=== PATIENT | female | born 1995 | race African-American/Black ===

== ENCOUNTER 2016-06-28 13:04 | Emergency (ER) | payer OTHER ==
[2016-06-28 13:19] VITALS: BP 129/98
--- NOTE | 2016-06-28 13:38 | ER Document Report ---
ED Medical Screen (RME) - General Chief Complaint: Abdominal Pain Stated Complaint: ABDOMINAL PAIN, BACK PAIN Notes: 21-year-old female patient complains of 2 day history of sharp stabbing pain in both sides of her abdomen on the lateral aspect. There is no vomiting, no fever but she has felt chilled. There is no dysuria. Last menstrual period was about a month ago. She reports prior histories of pancreatitis, however visits here showed 1 lipase once being checked that was minimally above the normal level. I have greeted and performed a rapid initial assessment of this patient. A comprehensive ED assessment and evaluation of the patient, analysis of test results and completion of the medical decision making process will be conducted by additional ED providers. TRAVEL OUTSIDE OF THE [place] IN LAST 30 DAYS: No - Related Data Allergies/Adverse Reactions: No Known Allergies Allergy (Verified 11/25/13 17:46) Past Medical History - Social History Family history: CAD, DM, Hyperlipidemia, Hypertension Renal/ Medical History: Denies: Hx Peritoneal Dialysis - Immunizations Immunizations up to date: Yes Hx Diphtheria, Pertussis, Tetanus Vaccination: Yes Physical Exam - Vital signs Vitals: Temp Pulse Resp BP Pulse Ox 98.6 F 116 H 16 129/98 H 100 06/28/16 13:15 06/28/16 13:15 06/28/16 13:15 06/28/16 13:15 06/28/16 13:15 Course - Vital Signs Vital signs: Temp Pulse Resp BP Pulse Ox 98.6 F 116 H 16 129/98 H 100 06/28/16 13:15 06/28/16 13:15 06/28/16 13:15 06/28/16 13:15 06/28/16 13:15
[2016-06-28 14:03] LABS: ABSOLUTE LYMPHOCYTES (AUTO) 1.8 10^3/uL (0.5-4.7); ABSOLUTE MONOCYTES (AUTO) 0.6 10^3/uL (0.1-1.4); BASOPHILS % (AUTO) 0.8 % (0-2); EOSINOPHILS % (AUTO) 0.7 % (0-6); HEMATOCRIT 35.5 % (36.0-47.0); HEMOGLOBIN 11.5 g/dL (12.0-15.5); LYMPHOCYTES % (AUTO) 32.4 % (13-45); MEAN CORPUSCULAR HEMOGLOBIN 24.7 pg (27.0-33.4); MEAN CORPUSCULAR HGB CONC 32.4 g/dL (32.0-36.0); MEAN CORPUSCULAR VOLUME 76 fl (80-97); MONOCYTES % (AUTO) 10.7 % (3-13); RED BLOOD COUNT 4.66 10^6/uL (3.72-5.28); RED CELL DISTRIBUTION WIDTH 14.1 % (11.5-14.0); SEGMENTED NEUTROPHILS % (AUTO) 55.4 % (42-78); WHITE BLOOD COUNT 5.4 10^3/uL (4.0-10.5)
[2016-06-28 14:21] LABS: APPEARANCE,URINE CLOUDY; BILIRUBIN,URINE NEGATIVE (NEGATIVE); GLUCOSE, URINE NEGATIVE (NEGATIVE); KETONES,URINE NEGATIVE (NEGATIVE); LEUKOCYTE ESTERASE,URINE LARGE (NEGATIVE); NITRITE,URINE NEGATIVE (NEGATIVE); PROTEIN,URINE NEGATIVE (NEGATIVE)
[2016-06-28 14:30] LABS: ALANINE AMINOTRANSFERASE 21 U/L (9-52); ALBUMIN 4.5 g/dL (3.5-5.0); ALKALINE PHOSPHATASE 54 U/L (38-126); ANION GAP 12 (5-19); ASPARTATE AMINO TRANSFERASE 16 U/L (14-36); BILIRUBIN,DIRECT 0.1 mg/dL (0.0-0.4); BILIRUBIN,TOTAL 0.5 mg/dL (0.2-1.3); BLOOD UREA NITROGEN 7 mg/dL (7-20); CALCIUM 9.8 mg/dL (8.4-10.2); CARBON DIOXIDE 26 mmol/L (22-30); CHLORIDE 103 mmol/L (98-107); CREATININE RESULT 0.94 mg/dL (0.52-1.25); GLUCOSE 100 mg/dL (75-110); LIPASE 202.9 U/L (23-300); POTASSIUM 4.2 mmol/L (3.6-5.0); SODIUM 141.3 mmol/L (137-145)
[2016-06-28 15:01] LABS: ADD ON TESTING BLD IN LAB ACKNOWLEDGE
--- NOTE | 2016-06-28 16:27 | ER Document Report ---
ED GI/ - General Chief Complaint: Abdominal Pain Stated Complaint: ABDOMINAL PAIN, BACK PAIN Time seen by provider: 16:22 Mode of Arrival: Ambulatory Information source: Patient Notes: 21-year-old female presents to ED for the patient's called bad kidney infection pancreatitis and severe stomach pain and back pain to the point that she could not stand it. When I saw the patient she did not have any pain at all. She stated she had had pain for 2 days it was sharp and stabbing. Denies any nausea vomiting diarrhea or fever or chills. TRAVEL OUTSIDE OF THE [place] IN LAST 30 DAYS: No - HPI Patient complains to provider of: Abdominal pain Onset: Other - 2 days Timing/Duration: Intermittent Quality of pain: Sharp Severity at maximum: Moderate Severity in ED: None Pain Level: Denies Vaginal bleeding (Compared to normal period): None Menstrual period history: : 1 Para: 0 Associated symptoms: None Exacerbated by: Denies Relieved by: Denies Similar symptoms previously: No Recently seen / treated by doctor: No - Related Data Allergies/Adverse Reactions: No Known Allergies Allergy (Verified 06/28/16 16:38) Past Medical History - General Information source: Patient - Social History Smoking Status: Current Every Day Smoker Cigarette use (# per day): Yes - one cigarette a day Chew tobacco use (# tins/day): No Smoking Education Provided: Yes - less than 1 minute Frequency of alcohol use: None Drug Abuse: None Lives with: Grandparent(s) Family History: Reviewed & Not Pertinent Patient has suicidal ideation: No Patient has homicidal ideation: No - Past Medical History Cardiac Medical History: Reports: None Pulmonary Medical History: Reports: None EENT Medical History: Reports: None Neurological Medical History: Reports: None Endocrine Medical History: Reports: None Renal/ Medical History: Reports: None Malignancy Medical History: Reports: None GI Medical History: Reports: None Musculoskeltal Medical History: Reports None Skin Medical History: Reports None Psychiatric Medical History: Reports: None Traumatic Medical History: Reports: None Infectious Medical History: Reports: None Surgical Hx: Negative Past Surgical History: Reports: None - Immunizations Immunizations up to date: Yes Hx Diphtheria, Pertussis, Tetanus Vaccination: Yes Hx Pneumococcal Vaccination: 03/14/00 Review of Systems - Review of Systems Constitutional: No symptoms reported EENT: No symptoms reported Cardiovascular: No symptoms reported Respiratory: No symptoms reported Gastrointestinal: Abdominal pain Genitourinary: Flank pain Female Genitourinary: No symptoms reported Musculoskeletal: No symptoms reported Skin: No symptoms reported Hematologic/Lymphatic: No symptoms reported Neurological/Psychological: No symptoms reported Physical Exam - Vital signs Vitals: Temp Pulse Resp BP Pulse Ox 98.6 F 116 H 16 129/98 H 100 06/28/16 13:15 06/28/16 13:15 06/28/16 13:15 06/28/16 13:15 06/28/16 13:15 Interpretation: Normal - General General appearance: Appears well, Alert - HEENT Head: Normocephalic, Atraumatic Eyes: Normal Pupils: PERRL - Respiratory Respiratory status: No respiratory distress Chest status: Nontender Breath sounds: Normal Chest palpation: Normal - Cardiovascular Rhythm: Regular Heart sounds: Normal auscultation Murmur: No - Abdominal Inspection: Normal Distension: No distension Bowel sounds: Normal Tenderness: Nontender. No: Tender Organomegaly: No organomegaly - Back Back: Normal, Nontender - Extremities General upper extremity: Normal inspection, Nontender, Normal color, Normal ROM , Normal temperature General lower extremity: Normal inspection, Nontender, Normal color, Normal ROM , Normal temperature, Normal weight bearing. No: Abe's sign - Neurological Neuro grossly intact: Yes Cognition: Normal Orientation: AAOx4 [place] Coma Scale Eye Opening: Spontaneous [place] Coma Scale Verbal: Oriented [place] Coma Scale Motor: Obeys Commands [place] Coma Scale Total: 15 Speech: Normal Motor strength normal: LUE, RUE, LLE, RLE Sensory: Normal - Psychological Associated symptoms: Normal affect, Normal mood - Skin Skin Temperature: Warm Skin Moisture: Dry Skin Color: Normal Course - Re-evaluation Re-evalutation: 06/28/16 16:[address] Otto who is the covering physician he stated that the patient needs to get a ultrasound before she can go home. 06/28/16 17:54 Patient refused to wait for the results of the ultrasound patient signed out AGAINST MEDICAL ADVICE. She was given instructions on blood pressure stop smoking and need to follow up with [facility]. She was also given a copy of her labs to take to her first [facility] appointment. - Vital Signs Vital signs: Temp Pulse Resp BP Pulse Ox 98.6 F 116 H 16 129/98 H 100 06/28/16 13:15 06/28/16 13:15 06/28/16 13:15 06/28/16 13:15 06/28/16 13:15 - Laboratory Result Diagrams: 06/28/16 13:52 06/28/16 13:52 Laboratory results interpreted by me: 06/28/16 06/28/16 06/28/16 13:52 13:52 13:52 Hgb 11.5 L Hct 35.5 L MCV 76 L MCH 24.7 L RDW 14.1 H Serum HCG, Qual POSITIVE H Beta HCG, Quant Urine Urobilinogen 2.0 H Ur Leukocyte Esterase LARGE H 06/28/16 13:52 Hgb Hct MCV MCH RDW Serum HCG, Qual Beta HCG, Quant 236.88 H Urine Urobilinogen Ur Leukocyte Esterase Discharge - Discharge Clinical Impression: Pelvic pain affecting in first trimester, antepartum Disposition: AGAINST MEDICAL ADVICE Instructions: Pelvic Pain in ([facility]), Ob-Sports Equipment Repairer Doctors Additional Instructions: You are . care is best started as early in as possible. If you're unsure about continuing this , you should discuss this with your physician or with diesel mechanic [facility] at [facility]. You should take only medications approved by your physician. Acetaminophen can safely be taken for minor pains. As a rule, medication for chronic conditions such as asthma or seizures can safely be continued. You should discuss with the physician every medicine you take. Any regular exercise program can be continued. Talk to your physician, however, before engaging in competitive or demanding sports. Alcohol, smoking, and "street drugs" are dangerous to your baby. Cocaine is especially dangerous. Don't use any illicit drugs! Acetaminophen Acetaminophen may be taken for pain relief or fever control. It's much safer than aspirin, offering a wider range of "safe" dosages. It is safe during . Some brand names are Tylenol, Panadol, Datril, Anacin 3, Tempra, and Liquiprin. Acetaminophen can be repeated every four hours. The following are maximum recommended dosages: WEIGHT Dose Drops Elixir Chewable( 80mg) (LBS.) drprs=droppers tsp=teaspoon 6 40 mg .4 ml (1/2) 6-11 80 mg .8 ml (full) 1/2 tsp 1 tab 12-16 120 mg 1 1/2 drprs 3/4 tsp 1 1/2 tabs 17-23 160 mg 2 drprs 1 tsp 2 tabs 24-30 240 mg 3 drprs 1 1/2 tsp 3 tabs 30-35 320 mg 2 tsp 4 tabs 36-41 360 mg 2 1/4 tsp 4 1 /2 tabs 42-47 400 mg 2 1/2 tsp 5 tabs 48-53 480 mg 3 tsp 6 tabs 54-59 520 mg 3 1/4 tsp 6 1 /2 tabs 60-64 560 mg 3 1/2 tsp 7 tabs 65-70 600 mg 3 3/4 tsp 7 1 /2 tabs 71-76 640 mg 4 tsp 8 tabs 77-82 720 mg 4 1/2 tsp 9 tabs 83-88 800 mg 5 tsp 10 tabs >89 pounds or adults 650 mg to 900 mg Acetaminophen can be repeated every four hours. Maximum daily dose not to exceed 4000 mg. These maximum recommended dosages are slightly higher than the dosages written on the product container, but these dosages are very safe and well below the toxic dosage for acetaminophen. FOLLOW-UP CARE: If you have been referred to a physician for follow-up care, call the physician s office for an appointment as you were instructed or within the next two days. If you experience worsening or a significant change in your symptoms, notify the physician immediately or return to the Emergency Department at any time for re-evaluation. Forms: Smoking Cessation Education, Elevated Blood Pressure
== END 2016-06-28 17:55 | disposition left against medical advice (07) ==
LOC: ER 13:04
DX: O26.891 Other specified pregnancy related conditions, first trimester (principal); R10.2 Pelvic and perineal pain; R10.9 Unspecified abdominal pain; M54.9 Dorsalgia, unspecified; O99.331 Smoking (tobacco) complicating pregnancy, first trimester; F17.210 Nicotine dependence, cigarettes, uncomplicated; Z3A.00 Weeks of gestation of pregnancy not specified
CPT/HCPCS: 36415; 76817; 80053; 81001; 83690; 84702; 84703; 85025; 99284

== ENCOUNTER 2016-08-17 21:44 | Emergency (ER) | payer OTHER | END 2016-08-17 22:51 | disposition left against medical advice (07) | LOC: ER 21:44 | DX: Z53.9 Procedure and treatment not carried out, unspecified reason (principal); R10.9 Unspecified abdominal pain; O46.91 Antepartum hemorrhage, unspecified, first trimester ==

== ENCOUNTER 2016-11-06 15:43 | Outpatient (CLI) | payer OTHER, MEDICAID ==
[2016-11-06 17:48] LABS: APPEARANCE,URINE CLEAR; BILIRUBIN,URINE NEGATIVE (NEGATIVE); GLUCOSE, URINE NEGATIVE (NEGATIVE); KETONES,URINE NEGATIVE (NEGATIVE); LEUKOCYTE ESTERASE,URINE TRACE (NEGATIVE); NITRITE,URINE NEGATIVE (NEGATIVE); PROTEIN,URINE NEGATIVE (NEGATIVE); URINE SPECIFIC GRAVITY 1.006; UROBILINOGEN,URINE NEGATIVE mg/dL (<2.0)
[2016-11-06 17:59] LABS: URINE BARBITURATES SCREEN NEGATIVE; URINE METHADONE SCREEN NEGATIVE; URINE OPIATES LOW NEGATIVE; URINE PHENCYCLIDINE SCREEN NEGATIVE
[2016-11-06] MEDS ORDERED: ONDANSETRON 4 MG TAB.RAPDIS ONE (18:39)
[2016-11-06] MEDS ORDERED: METRONIDAZOLE 500 MG TABLET ONE (18:55)
[2016-11-06 19:10] LABS: CHLAM PCR NOT DETECTED (NOT DETECT)
== END 2016-11-06 19:05 | disposition home or self-care (01) ==
LOC: LC 15:43
PROVIDERS: ATTEND Specialist
PROC: 4A1HXCZ Monitoring of Products of Conception, Cardiac Rate, External Approach (ICD-10-PCS; principal; 2016-11-06)
DX: O98.312 Other infections with a predominantly sexual mode of transmission complicating pregnancy, second trimester (principal); Z3A.23 23 weeks gestation of pregnancy
CPT/HCPCS: 87210; 81001; 80307; 87491; 87591; 59899; S0119

== ENCOUNTER 2016-12-20 12:04 | Outpatient (CLI) | payer OTHER, MEDICAID ==
[2016-12-20 13:03] LABS: APPEARANCE,URINE CLEAR; BILIRUBIN,URINE NEGATIVE (NEGATIVE); GLUCOSE, URINE NEGATIVE (NEGATIVE); KETONES,URINE NEGATIVE (NEGATIVE); LEUKOCYTE ESTERASE,URINE TRACE (NEGATIVE); NITRITE,URINE NEGATIVE (NEGATIVE); PROTEIN,URINE NEGATIVE (NEGATIVE); URINE SPECIFIC GRAVITY 1.014
[2016-12-20 13:08] LABS: AMNISURE (ROM) NEGATIVE (NEGATIVE)
[2016-12-20 13:24] LABS: URINE BARBITURATES SCREEN NEGATIVE; URINE METHADONE SCREEN NEGATIVE; URINE OPIATES LOW NEGATIVE; URINE PHENCYCLIDINE SCREEN NEGATIVE
== END 2016-12-20 13:26 | disposition home or self-care (01) ==
LOC: LC 12:04
PROVIDERS: ATTEND Obstetrics & Gynecology
PROC: 4A1HXCZ Monitoring of Products of Conception, Cardiac Rate, External Approach (ICD-10-PCS; principal; 2016-12-20)
DX: Z34.93 Encounter for supervision of normal pregnancy, unspecified, third trimester (principal)
CPT/HCPCS: 84112; 81001; 80307; 80353; 59899; G0480 ×3

== ENCOUNTER 2017-02-10 01:44 | Inpatient (IN) | payer OTHER, MEDICAID ==
[2017-02-10] MEDS ORDERED: RINGERS SOLUTION,LACTATED 1,000 ML IV PRN (02:37)
[2017-02-10] MEDS ORDERED: RINGERS SOLUTION,LACTATED 1,000 ML IV ONE (02:37)
[2017-02-10 02:49] LABS: HEMATOCRIT 30.6 % (36.0-47.0); HEMOGLOBIN 9.8 g/dL (12.0-15.5); HGB HCT DIFFERENCE -1.2; MEAN CORPUSCULAR HGB CONC 32.2 g/dL (32.0-36.0); MEAN CORPUSCULAR VOLUME 78 fl (80-97); RED BLOOD COUNT 3.94 10^6/uL (3.72-5.28); RED CELL DISTRIBUTION WIDTH 14.3 % (11.5-14.0)
[2017-02-10] MEDS ORDERED: PENICILLIN G-K 5 MILLION UNIT VIAL ONE (03:12)
[2017-02-10] MEDS ORDERED: MISOPROSTOL 0.2 MG TABLET ONE (03:12)
[2017-02-10] MEDS ORDERED: OXYTOCIN/NORMAL SALINE 20 UNIT/1,000 ML RTUINJ ONE (03:13)
[2017-02-10] MEDS ORDERED: LIDOCAINE 1% INJ-PF (10 MG/ML) 30 ML SDV ONE (03:13)
[2017-02-10 03:15] LABS: BASOPHILS % (MANUAL) 0 % (0-2); EOSINOPHILS % (MANUAL) 0 % (0-6); LYMPHOCYTES % (MANUAL) 25 % (13-45); TOTAL CELLS COUNTED 100
[2017-02-10 03:16] LABS: POLYCHROMASIA SLIGHT; TOXIC GRANULATION SLIGHT; TOXIC VACUOLATION PRESENT
[2017-02-10 03:17] LABS: ANISOCYTOSIS SLIGHT; BURR CELLS 1+; OVALOCYTES SLIGHT; POIKILOCYTOSIS SLIGHT
[2017-02-10 03:18] LABS: MICROCYTOSIS SLIGHT; TEAR DROP CELLS SLIGHT
[2017-02-10] MEDS ORDERED: BUPIVACAINE HCL 0.25 % INJ/PF (2.5 MG/1 ML) 30 ML VIAL ONE (04:01)
[2017-02-10] MEDS ORDERED: EPHEDRINE SULFATE INJ 50 MG/1 ML AMPULE ONE (04:01)
[2017-02-10] MEDS ORDERED: FENTANYL/BUPIVACAINE/NS/PF 200 MCG/100 ML RTUINJ EPI ONE (04:01)
[2017-02-10] MEDS ORDERED: EPHEDRINE SULFATE INJ 50 MG/1 ML AMPULE IV ONE (04:04)
[2017-02-10] MEDS ORDERED: BUPIVACAINE HCL 0.25 % INJ/PF (2.5 MG/1 ML) 30 ML VIAL INFIL ONE (04:04)
[2017-02-10] MEDS ORDERED: EPHEDRINE SULFATE INJ 50 MG/1 ML AMPULE IV PRN (04:04)
[2017-02-10] MEDS ORDERED: DIPHENHYDRAMINE HCL 50 MG/ML VIAL IV PRN (04:04)
[2017-02-10] MEDS ORDERED: FENTANYL/BUPIVACAINE/NS/PF 200 MCG/100 ML RTUINJ EPI PRN (04:04)
[2017-02-10] MEDS ORDERED: BENZOIN/ALOE VERA/STORAX/TOLU TINCTURE 60 ML TP PRN (04:04)
[2017-02-10 04:23] LABS: APPEARANCE,URINE SLIGHTLY-CLOUDY; BILIRUBIN,URINE NEGATIVE (NEGATIVE); GLUCOSE, URINE NEGATIVE (NEGATIVE); KETONES,URINE 20 mg/dL (NEGATIVE); LEUKOCYTE ESTERASE,URINE MODERATE (NEGATIVE); NITRITE,URINE NEGATIVE (NEGATIVE); PROTEIN,URINE 30 mg/dL (NEGATIVE); URINE SPECIFIC GRAVITY 1.025
[2017-02-10 04:41] LABS: URINE BARBITURATES SCREEN NEGATIVE; URINE METHADONE SCREEN NEGATIVE; URINE OPIATES LOW NEGATIVE; URINE PHENCYCLIDINE SCREEN NEGATIVE
[2017-02-10] MEDS ORDERED: MEASLES,MUMPS&RUBELLA VACC/PF 0.5 ML VIAL SUBCUT PRN ×2 (07:54→11:30)
[2017-02-10] MEDS ORDERED: OXYTOCIN/NORMAL SALINE 1,000 ML IV PRN (07:54)
[2017-02-10] MEDS ORDERED: BENZOCAINE/MENTHOL AEROSOL SPRAY 56 ML TOP PRN (07:54)
[2017-02-10] MEDS ORDERED: ZOLPIDEM TARTRATE 5 MG TABLET PO PRN (07:54)
[2017-02-10] MEDS ORDERED: DIBUCAINE 1% OINTMENT 28 GM TP PRN (07:54)
[2017-02-10] MEDS ORDERED: DIPH/PERTUSS(ACELL)/TETANUS VAC/PF 0.5 ML SYR (>=10YO) IM PRN ×2 (07:54→11:30)
[2017-02-10] MEDS ORDERED: ACETAMINOPHEN WITH CODEINE #3 TABLET PO PRN (07:54)
--- NOTE | 2017-02-10 08:20 | Admission Physical ---
Datetime Report Generated by CPN: 02/10/2017 08:19 CURRENT ADMISSION Chief Complaint: Uterine Contractions Indication for Induction: Not Applicable Indication for Induction: Term, Intrauterine ; Active Labor; Intact Membranes Admit Plan: Admit to Unit; Initiate Labor Protocol ALLERGIES Medication Allergies: No Medication Allergies: No Known Allergies (02/10/2017) Medication Allergies: No Known Allergies (12/20/2016) Medication Allergies: No Known Allergies (06/28/2016) Latex: No Latex Allergies Food Allergies: none Environmental Allergies: none OBSTETRICAL HISTORY EDC: 03/03/2017 00:00 : 1 Para: 0 Term: 0 : 0 SAB: 0 IAB: 0 Ectopic: 0 Livin Cesareans: 0 VBACs: 0 Multiple Births: 0 Gestational Diabetes: No Rh Sensitization: No Incompetent Cervix: No ALBINO: No Infertility: No ART Treatment: No Uterine Anomaly: No IUGR: No Hx Previous C/S: No Macrosomia: No Hx Loss/Stillborn: No PIH: No Hx : No Placenta Previa/Abruption: No Depression/PP Depression: No PTL/PROM: No Post Hemorrhage: No Current Procedures: Ultrasound Obstetrical History Comments: G1: Current SEE RECORDS Alcohol: No Marijuana : Yes Cocaine: No Other Illicit Drugs: No Cigarettes: Current Everyday Smoker. [id number] MEDICAL HISTORY Diabetes: No Blood Transfusion: No Pulmonary Disease (Asthma, TB): No Breast Disease: No Hypertension: No Ell Teacher Surgery: No Heart Disease: No Hosp/Surgery: No Anesthetic Complications: No Kidney Disease: Yes Abnormal Pap Smear: No Other Medical Diseases: No Hepatitis/Liver Disease: No Significant Family History: No Varicosities/Phlebitis: No Trauma/Violence : No Thyroid Dysfunction: No Medical History Comments: Kidney infection- summer 2015 pacreatitis- october 2015 INFECTIOUS HISTORY Gonorrhea: Yes Genital Herpes: Yes Chlamydia: Yes Tuberculosis: No Syphilis: No Hepatitis: No HIV/AIDS Exposure: No Rash or Viral Illness: No HPV: No Infectious History Comments: Gonorrhea- September PHYSICAL EXAM General: Normal HEENT: Normal Neurologic: Normal Thyroid: Normal Heart: Normal Lungs: Normal Breast: Deferred Back: Normal Abdomen: Normal Genitourinary Exam: Normal Extremities: Normal DTRs: Normal Pelvic Type: Adequate VAGINAL EXAM Dilatation: 5 MEMBRANES Membranes: Intact FETUS A EGA: 37.0 Decelerations: None PLANS FOR LABOR AND DELIVERY Labor and Delivery: None Pain Management: Epidural Feeding Preference: Formula Benefit of Breast Feed Discussed: Yes Circumcision: N/A INFORMED CONSENT Signature: with User ID: [email or web address]
[2017-02-10] MEDS: PRENATAL VITAMIN W DHA CAPSULE PO SCH (09:54)
[2017-02-10] MEDS: SENNOSIDES/DOCUSATE 8.6-50 MG 1 EACH TABLET PO SCH (09:54)
[2017-02-10] MEDS: DOCUSATE SODIUM 100 MG CAPSULE PO SCH ×2 (09:54→17:34)
[2017-02-10] MEDS: FERROUS SULFATE 325 MG TABLET PO SCH ×2 (09:54→17:34)
[2017-02-10] MEDS: ACETAMINOPHEN WITH CODEINE #3 TABLET PO PRN ×2 (10:21→21:51)
[2017-02-10] MEDS ORDERED: INFLUENZA ADLT QUAD (36MOS+) 2017-18 VAC 0.5 ML SYR IM PRN (11:03)
[2017-02-10] MEDS: IBUPROFEN 800 MG TABLET PO SCH ×2 (13:30→21:51)
[2017-02-11] MEDS: IBUPROFEN 800 MG TABLET PO SCH ×3 (05:37→21:03)
[2017-02-11 07:18] LABS: HEMATOCRIT 28.4 % (36.0-47.0); HEMOGLOBIN 9.1 g/dL (12.0-15.5); HGB HCT DIFFERENCE -1.1; MEAN CORPUSCULAR HEMOGLOBIN 25.1 pg (27.0-33.4); MEAN CORPUSCULAR HGB CONC 32.2 g/dL (32.0-36.0); MEAN CORPUSCULAR VOLUME 78 fl (80-97); RED BLOOD COUNT 3.63 10^6/uL (3.72-5.28); RED CELL DISTRIBUTION WIDTH 14.2 % (11.5-14.0); WHITE BLOOD COUNT 12.3 10^3/uL (4.0-10.5)
[2017-02-11] MEDS: SENNOSIDES/DOCUSATE 8.6-50 MG 1 EACH TABLET PO SCH (10:34)
[2017-02-11] MEDS: PRENATAL VITAMIN W DHA CAPSULE PO SCH (10:34)
[2017-02-11] MEDS: DOCUSATE SODIUM 100 MG CAPSULE PO SCH ×2 (10:34→18:11)
[2017-02-11] MEDS: FERROUS SULFATE 325 MG TABLET PO SCH ×2 (10:34→18:11)
--- NOTE | 2017-02-11 11:37 | PDOC PROGRESS REPORT ---
Subjective-OB Subjective: Post Delivery Day: 21 year old. pt doing well, tolerating diet, voiding, bleeding diminishing, pain controlled. denies needs. Physical Exam (OB) Vital Signs: Temp Pulse Resp BP Pulse Ox 97.6 F 81 16 102/77 99 02/11/17 07:53 02/11/17 07:53 02/11/17 07:53 02/11/17 07:53 02/11/17 07:53 Intake & Output 02/10/17 02/11/17 02/12/17 06:59 06:59 06:59 Intake Total 900 Balance 900 Weight 68 kg - Abdomen Description: Soft, Round Hernia Present: No Fundal Description: Firm, Midline Fundal Height: u/u - u/2 - Abdominal Distension: No distension Tenderness: Nontender - Extremities Lower extremities: Abe's sign - neg Ankle: Nontender Objective-Diagnostic Laboratory: 02/11/17 07:00 02/11/17 07:00 WBC 12.3 H RBC 3.63 L Hgb 9.1 L Hct 28.4 L MCV 78 L MCH 25.1 L MCHC 32.2 RDW 14.2 H Plt Count 188
[2017-02-12] MEDS: IBUPROFEN 800 MG TABLET PO SCH (06:09)
[2017-02-12 09:12] VITALS: BP 120/79
--- NOTE | 2017-02-12 09:47 | PDOC PROGRESS REPORT ---
Subjective-OB Subjective: Post Delivery Day: 21 year old. Denies any needs at this time Physical Exam (OB) Vital Signs: Temp Pulse Resp BP Pulse Ox 97.4 F 95 15 120/79 99 02/12/17 08:38 02/12/17 08:38 02/12/17 08:38 02/12/17 08:38 02/12/17 08:38 Intake & Output 02/11/17 02/12/17 02/13/17 06:59 06:59 06:59 Intake Total 900 240 Balance 900 240 - Abdomen Description: Soft, Round Hernia Present: No Fundal Description: Firm, Midline Fundal Height: 3/u - 4/u - Abdominal Tenderness: Nontender - Extremities Lower extremities: Abe's sign - neg Calf: Nontender Objective-Diagnostic Laboratory: 02/11/17 07:00
[2017-02-12] MEDS: DOCUSATE SODIUM 100 MG CAPSULE PO SCH (10:59)
[2017-02-12] MEDS: PRENATAL VITAMIN W DHA CAPSULE PO SCH (10:59)
[2017-02-12] MEDS: FERROUS SULFATE 325 MG TABLET PO SCH (11:00)
[2017-02-12] MEDS: SENNOSIDES/DOCUSATE 8.6-50 MG 1 EACH TABLET PO SCH (11:00)
--- NOTE | 2017-02-23 14:14 | Delivery Summary ---
Del Sum A-C Datetime Report Generated by CPN: 02/23/2017 14:14 DELIVERY PERSONNEL DELIVERY PERSONNEL: [id number] Delivery Doctor:: John Salcedo MD Labor and Delivery Nurse:: Maxine Meredith RNrotational moulding operator Nurse:: Cammie Balderas RN Nursery Nurse:: Sharita Chong RN Cascade Operator/WELDER APPRENTICE COMBINATION: LUDIN JoyceA MATERNAL INFORMATION Delivery Anesthesia: Epidural Medications After Delivery: Pitocin Bolus-Please Comment; Pitocin Drip 20 Units/1000ml NSS Estimated Blood Loss (ml): 200 Maternal Complications: Precipitous Labor (<3hrs); Other Other Maternal Complications: UDS showed positive for cocaine on preliminary result, confirmation ordered. Provider Comments: small baby pt pos for cocaine LABOR SUMMARY EDC: 03/03/2017 00:00 No. Babies in Womb: 0 Attempted: No Labor Anesthesia: Epidural LABOR INFORMATION Reason for Induction: Not Applicable Onset of Labor: 02/10/2017 02:55 Complete Dilatation: 02/10/2017 04:35 Oxytocin: N/A Group B Beta Strep: unknown Antibiotics # of Doses: 1 Antibiotics Time of Last Dose: 0325 Name of Antibiotic Given: PCN Steroids Given: None Reason Steroids Not Administered: Not Applicable MEMBRANES Membranes Rupture Method: Spontaneous Membranes Rupture Method: Spontaneous Rupture of Membranes: 02/10/2017 03:09 Length of Rupture (hr): 1.93 Amniotic Fluid Color: Clear Amniotic Fluid Color: Clear Amniotic Fluid Amount: Moderate Amniotic Fluid Amount: Moderate Amniotic Fluid Odor: Normal STAGES OF LABOR Stage 1 hr: 1 Stage 1 min: 40 Stage 2 hr: 0 Stage 2 min: 30 Stage 3 hr: 0 Stage 3 min: 3 Total Time in Labor hr: 2 Total Time in Labor min: 13 VAGINAL DELIVERY Episiotomy: None Laceration #1: None Laceration Extension #1: N/A Laceration Repair: Not Applicable Sponge Count Correct: N/A Sharps Count Correct: N/A CSECTION DELIVERY Primary Indication: N/A Secondary Indication: N/A CSection Incidence: N/A Labor: N/A Elective: N/A CSection Incision: N/A BABY A INFORMATION Delivery Date/Time: 02/10/2017 05:05 Method of Delivery: Vaginal Method of Delivery: Vaginal Born in Route : No : N/A Forceps: N/A Vacuum Extraction: N/A Shoulder Dystocia : No PRESENTATION/POSITION BABY A Presentation: Cephalic Presentation: Cephalic Presentation: Cephalic Cephalic Presentation: Vertex Vertex Position: Occipital Anterior Breech Presentation: N/A PLACENTA INFORMATION BABY A Placenta Delivery Time : 02/10/2017 05:08 Placenta Method of Delivery: Spontaneous Placenta Method of Delivery: Spontaneous Placenta Status: Delivered SCORES BABY A Heart Rate 1 min: >100 bpm Resp Effort 1 min: Good Cry Reflex Irritability 1 min: Cough or Sneeze or Pulls Away Muscle Tone 1 min: Active Motion Color 1 min: Blue/Pale Resuscitation Effort 1 min: Tactile Stimulation SCORE 1 MIN: 8 Heart Rate 5 min: >100 bpm Resp Effort 5 min: Good Cry Reflex Irritability 5 min: Cough or Sneeze or Pulls Away Muscle Tone 5 min: Active Motion Color 5 min: Body [place], Extremities Blue Resuscitation Effort 5 min: Tactile Stimulation SCORE 5 MIN: 9 INFORMATION BABY A Gestational Age at Delivery: 37.0 Gestational Status: Early Term- 37- 38.6 Weeks Infant Outcome : Liveborn Condition : Stable Infant Sex: Female IDENTIFICATION BABY A Verification Date/Time: 02/10/2017 05:17 ID Band Number: [id number] Mother's Name Verified: Yes Infant RN Verifying : SJasper Mendozatibjaradir, RN _ MJasper Archer, RN WEIGHT/LENGTH BABY A Birthweight (gm): 2410 Infant Weight (lb): 5 Infant Weight (oz): 5 Infant Length (in): 18.00 Infant Length (cm): 45.72 CORD INFORMATION BABY A No. Cord Vessels: 3 Nuchal Cord : N/A Cord Blood Taken: Yes-For Storage (Mom's Blood type +) Suction: Mouth; Nose ASSESSMENT BABY A Infant Complications: None Physical Findings at Delivery: Within Normal Limits Respirations: Appears Normal Skin to Skin: No Skin to Skin Time (min): 0 Api Product Manager/ALS Called : No Care By: A Arlette, RN Transferred To: Remains with Mother BABY B INFORMATION : N/A SIGNATURES Signature: with User ID: [email or web address]
== END 2017-02-12 12:20 | disposition home or self-care (01) | DRG 775 ==
LOC: LC 01:44 → LR 03:05 → 2S 08:18
PROVIDERS: ADMIT Obstetrics & Gynecology Gynecology; ATTEND Obstetrics & Gynecology Gynecology
PROC: 10E0XZZ Delivery of Products of Conception, External Approach (ICD-10-PCS; principal; 2017-02-10)
PROC: 4A0HXCZ Measurement of Products of Conception, Cardiac Rate, External Approach (ICD-10-PCS; 2017-02-10)
PROC: 3E0234Z Introduction of Serum, Toxoid and Vaccine into Muscle, Percutaneous Approach (ICD-10-PCS; 2017-02-12)
DX: O99.324 Drug use complicating childbirth (principal); O99.334 Smoking (tobacco) complicating childbirth; O62.3 Precipitate labor; F14.90 Cocaine use, unspecified, uncomplicated; F17.210 Nicotine dependence, cigarettes, uncomplicated; F12.90 Cannabis use, unspecified, uncomplicated; Z3A.37 37 weeks gestation of pregnancy; Z37.0 Single live birth; Z23 Encounter for immunization
CPT/HCPCS: 36415; 80307; 80353; 81005; 85025; 85027; 86592; 86850; 86900; 86901; 90686; G0480; J2540; J2590; J3490

== ENCOUNTER → 2017-02-24 | Outpatient (CLI) | payer OTHER, MEDICAID ==
[2017-02-25 14:41] LABS: HGB SOLUBILITY RESULT Negative (Negative)
[2017-02-25 15:22] LABS: HGB A 96.1 % (94.0-98.0); HGB A2 3.9 % (0.7-3.1)
== END ==
LOC: LAB 11:28
PROVIDERS: ATTEND Pediatrics
DX: Z13.0 Encounter for screening for diseases of the blood and blood-forming organs and certain disorders involving the immune mechanism (principal)
CPT/HCPCS: 36415; 83020

== ENCOUNTER 2017-04-17 11:26 | Emergency (ER) | payer MEDICAID, OTHER ==
[2017-04-17 11:30] VITALS: BP 101/72
[2017-04-17] MEDS ORDERED: LIDOCAINE 2% VISCOUS SOLN 20 ML UDCUP PO ONE (11:44)
--- NOTE | 2017-04-17 11:44 | ER Document Report ---
HPI - HPI Pain Level: 5 Notes: Patient is a 21-year-old female with no significant past medical history presents ED complaining of 2 things. The first is right-sided dental pain 1 week without obvious abscess or discharge. Patient states that she has had pain to the right side where she had teeth pulled previously. Patient also states that she has had a dry nonproductive cough 3 days without fever, nasal congestion as discharge. Patient states that she is eating and drinking without difficulties. She is urinating normally having normal bowel movements. Patient states that she was evaluated at the urgent care yesterday, had a negative workup, and was given Motrin for her pain, but she believes that she needs something more for her dental pain. She denies any drug allergies, smoking, IV drug use. Patient does have a dentist but has not seen them in 2 months since she has had teeth pulled. Denies any headache, fever, head injury , neck pain, changes in vision/speech/mentation/hearing, URI, sore throat, chest pain, palpitations, syncope, shortness of breath, wheeze, dyspnea, abdominal pain, nausea/vomiting/diarrhea, urinary retention, dysuria, hematuria , or rash. - ROS Systems Reviewed and Negative: Yes All other systems reviewed and negative - REPRODUCTIVE Reproductive: DENIES: : Past Medical History - Social History Smoking Status: Never Smoker Family History: Reviewed & Not Pertinent Renal/ Medical History: Denies: Hx Peritoneal Dialysis - Immunizations Immunizations up to date: Yes Hx Diphtheria, Pertussis, Tetanus Vaccination: Yes Hx Pneumococcal Vaccination: 03/14/00 Vertical Provider Document - CONSTITUTIONAL Agree With Documented VS: Yes Notes: PHYSICAL EXAMINATION: GENERAL: Well-appearing, well-nourished and in no acute distress. HEAD: Atraumatic, normocephalic. EYES: Pupils equal round and reactive to light, extraocular movements intact, sclera anicteric, conjunctiva are normal. ENT: EAC clear b/l. TM's intact b/l without erythema, fluid, or perforation. Nares patent and without discharge. oropharynx clear without exudates. No tonsilar hypertrophy or erythema. Moist mucous membranes. No sinus tenderness. Uvula midline. No palatine shift. No tongue protrusion. No respiratory compromise. Mouth: Poor dentition. + mild decay and mild gingivitis. No obvious abscess or discharge noted. No facial swelling. + tenderness to tooth #2. NECK: Normal range of motion, supple without lymphadenopathy. No rigidity/ meningismus. LUNGS: Breath sounds clear to auscultation bilaterally and equal. No wheezes rales or rhonchi. HEART: Regular rate and rhythm without murmurs, rubs, gallops. NEUROLOGICAL: Cranial nerves grossly intact. Normal speech, normal gait. Normal sensory, motor exams PSYCH: Normal mood, normal affect. SKIN: Warm, Dry, normal turgor, no rashes or lesions noted. - INFECTION CONTROL TRAVEL OUTSIDE OF THE [place] IN LAST 30 DAYS: No - RESPIRATORY O2 Sat by Pulse Oximetry: 99 Course - Re-evaluation Re-evalutation: 04/17/17 11:57 Patient is an afebrile, well-hydrated, 21-year-old female who presents ED with dental pain, suspect nerve root etiology versus infection, as well as a cough that I suspect is also viral. Vitals are stable. PE is otherwise unremarkable. No labs or imaging warranted at this time based on H&P. Patient' s lungs are clear to auscultation and she is perfusing oxygen well. Advised patient that I will not be giving any narcotics for her pain, but I will send her home with viscous lidocaine. I will also send her home with a prescription for penicillin as precautionary for her dental pain. Low suspicion for any meningitis, sepsis, peritonsillar/pharyngeal abscess, respiratory compromise, Jan's, temporal arteritis, or other emergent systemic condition at this time. Patient is aware this condition can change from initial presentation and she needs to monitor symptoms closely. Conservative measures otherwise for symptoms. Call to schedule an appointment with a dentist for further evaluation and management. Recheck with your PCM this week as well. Return to the ED with any worsening/concerning symptoms otherwise as reviewed in discharge. Patient is in agreement. - Vital Signs Vital signs: Temp Pulse Resp BP Pulse Ox 97.5 F 103 H 16 101/72 99 04/17/17 11:30 04/17/17 11:30 04/17/17 11:30 04/17/17 11:30 04/17/17 11:30 Discharge - Discharge Clinical Impression: Toothache, Acute URI Condition: Stable Disposition: HOME, SELF-CARE Instructions: [facility], Dentist, Penicillin V K ([facility]), Toothache ([facility]), Upper Respiratory Illness ([facility]) Additional Instructions: [place] and floss twice daily Maintain fluid intake Take antibiotics as directed Mouthwash, salt water gargles, peroxide rinse as needed Tylenol/ibuprofen as needed Recheck with PCM this week Wash hands regularly Wear a mask if coughing OTC cold medication as needed Call today/tomorrow and schedule an appointment with your dentist for further evaluation Return to the ED with any worsening symptoms and/or development of fever, headache, facial swelling, swelling of lips/tongue/throat, trouble swallowing, drooling, hoarseness, neck pain/stiffness, chest pain, palpitations, syncope, shortness of breath, trouble breathing, abdominal pain, n/v/d, numbness/tingling , or other worsening symptoms that are concerning to you. Prescriptions: Penicillin V Potassium [Penicillin Vk 250 mg Tablet] 500 mg PO BID #40 tablet Referrals: [facility] [Provider Group] - Follow up as needed [facility] [Provider Group] - Follow up as needed
== END 2017-04-17 11:58 | disposition home or self-care (01) ==
LOC: ER 11:26
DX: J06.9 Acute upper respiratory infection, unspecified (principal); K08.89 Other specified disorders of teeth and supporting structures; R05 Cough
CPT/HCPCS: 99282; J3490

== ENCOUNTER 2018-02-09 05:38 | Emergency (ER) | payer SELFPAY ==
--- NOTE | 2018-02-09 06:52 | ER Document Report ---
ED General - General Chief Complaint: Chest Pain Stated Complaint: CHEST PAIN Time Seen by Provider: 02/09/18 06:21 Notes: Patient is a 22-year-old female that presents to the emergency department for chief complaint of chest pain. Patient states she has been having intermittent sharp chest pains in the left side of her chest, and then towards the middle of her chest on and off over the past 48 hours. The pain was worse this morning so she decided come to the emergency department. It would last for 10-15 minutes at a time, she does have some chest discomfort at this time as well. Again described as a sharp sensation she currently rates it as a 3 out of 10. Denies any associated shortness of breath, difficulty breathing, fevers, chills , cough, nausea or vomiting. Past Medical History: Thalassemia Past Surgical History: Denies surgical history Social History: Admits to smoking cigarettes, denies alcohol or drug use. Family History: Reviewed and noncontributory for presenting illness Allergies: Reviewed, see documented allergy list. REVIEW OF SYSTEMS: Other than noted above, the 12 point review of systems was reviewed with the patient and were negative, all pertinent findings are included in the HPI. PHYSICAL EXAMINATION: Vital signs reviewed, nursing noted reviewed. GENERAL: Well-appearing, well-nourished and in no acute distress. HEAD: Atraumatic, normocephalic. EYES: Eyes appear normal, extraocular movements intact, sclera anicteric, conjunctiva are normal. ENT: nares patent, oropharynx clear without exudates. Moist mucous membranes. NECK: Normal range of motion, supple without lymphadenopathy LUNGS: Breath sounds clear to auscultation bilaterally and equal. No wheezes rales or rhonchi. HEART: Regular rate tachycardic, regular rhythm ABDOMEN: Soft, nontender, normoactive bowel sounds. No rebound, guarding, or rigidity. No masses appreciated. EXTREMITIES: Nontender, good range of motion, no pitting or edema. NEUROLOGICAL: No focal neurological deficits. Moves all extremities spontaneously Motor and sensory grossly intact on exam. PSYCH: Flat affect, but answers questions appropriately SKIN: Warm, Dry, normal turgor, no rashes or lesions noted on exposed skin TRAVEL OUTSIDE OF THE [place] IN LAST 30 DAYS: No - Related Data Allergies/Adverse Reactions: No Known Allergies Allergy (Verified 02/10/17 02:40) Past Medical History - Social History Smoking Status: Current Every Day Smoker Family History: Reviewed & Not Pertinent Renal/ Medical History: Denies: Hx Peritoneal Dialysis - Immunizations Immunizations up to date: Yes Hx Diphtheria, Pertussis, Tetanus Vaccination: Yes Hx Pneumococcal Vaccination: 03/14/00 Physical Exam - Vital signs Vitals: Temp Pulse Resp BP Pulse Ox 98.3 F 113 H 16 126/87 H 99 02/09/18 05:42 02/09/18 05:42 02/09/18 05:42 02/09/18 05:42 02/09/18 05:42 Course - Re-evaluation Re-evalutation: Patient seen and examined vital signs reviewed. Laboratory data and imaging were ordered as appropriate for the patient's presenting symptoms and complaint, with consideration of any critical or life threatening conditions that may be associated with their obtained history and exam as noted above. Patient was treated with IV fluids, and Pepcid Results were reviewed when available and demonstrated negative troponin, negative chest x-ray, negative d-dimer, blood work was otherwise unremarkable, mild anemia, patient has history of thalassemia, this is actually improved from her baseline. The patient was re-evaluated and was improved, no further chest pain Evaluation was most consistent with chest pain, nonspecified, possible GI related, will prescribe the patient Pepcid 20 mg twice daily, advised to follow- up with her primary care physician. Results were discussed with the patient at this point, after careful consideration I feel that that patient can be discharged from the emergency department, the patient was educated treatments and reasons to return to the emergency department based on their presumed diagnosis as noted above, they were advised to followup with a primary care physician in 2-3 days. Patient was agreeable to plan of care. *Note is created using voice recognition software and may contain spelling, syntax or grammatical errors. Patient seen and examined vital signs reviewed. Laboratory 02/09/18 02/09/18 02/09/18 07:10 07:10 07:10 WBC 5.5 RBC 4.47 Hgb 11.1 L Hct 34.8 L MCV 78 L MCH 24.8 L MCHC 31.9 L RDW 14.1 H Plt Count 224 Seg Neutrophils % 54.0 Lymphocytes % 32.2 Monocytes % 12.4 Eosinophils % 0.7 Basophils % 0.7 Absolute Neutrophils 3.0 Absolute Lymphocytes 1.8 Absolute Monocytes 0.7 Absolute Eosinophils 0.0 Absolute Basophils 0.0 D-Dimer Sodium 143.5 Potassium 4.1 Chloride 103 Carbon Dioxide 28 Anion Gap 13 BUN 11 Creatinine 1.00 Est GFR ( Amer) > 60 Est GFR (Non-Af Amer) > 60 Glucose 95 Calcium 9.8 Total Bilirubin 0.6 Direct Bilirubin 0.2 Neonat Total Bilirubin Not Reportable Neonat Direct Bilirubin Not Reportable Neonat Indirect Bili Not Reportable AST 19 ALT 13 Alkaline Phosphatase 52 Troponin I < 0.012 Total Protein 8.0 Albumin 4.6 Serum HCG, Qual 02/09/18 02/09/18 07:10 07:10 WBC RBC Hgb Hct MCV MCH MCHC RDW Plt Count Seg Neutrophils % Lymphocytes % Monocytes % Eosinophils % Basophils % Absolute Neutrophils Absolute Lymphocytes Absolute Monocytes Absolute Eosinophils Absolute Basophils D-Dimer < 0.27 Sodium Potassium Chloride Carbon Dioxide Anion Gap BUN Creatinine Est GFR ( Amer) Est GFR (Non-Af Amer) Glucose Calcium Total Bilirubin Direct Bilirubin Neonat Total Bilirubin Neonat Direct Bilirubin Neonat Indirect Bili AST ALT Alkaline Phosphatase Troponin I Total Protein Albumin Serum HCG, Qual NEGATIVE Chest X-Ray 02/09/18 06:51 IMPRESSION: NO ACUTE RADIOGRAPHIC FINDING IN THE CHEST. - Vital Signs Vital signs: Temp Pulse Resp BP Pulse Ox 98.2 F 113 H 18 119/88 H 100 02/09/18 08:33 02/09/18 05:42 02/09/18 08:33 02/09/18 08:33 02/09/18 07:00 - Laboratory Result Diagrams: 02/09/18 07:10 02/09/18 07:10 Laboratory results interpreted by me: 02/09/18 07:10 Hgb 11.1 L Hct 34.8 L MCV 78 L MCH 24.8 L MCHC 31.9 L RDW 14.1 H - EKG Interpretation by Me Additional EKG results interpreted by me: EKG demonstrates sinus tachycardia with a ventricular rate of 105 bpm, normal axis, QTC 492 ms, no evidence of acute ischemia on this EKG, no prior for comparison. Discharge - Discharge Clinical Impression: Chest pain Qualifiers: Chest pain type: unspecified Qualified Code(s): R07.9 - Chest pain, unspecified Condition: Stable Disposition: HOME, SELF-CARE Instructions: Chest Wall Pain ([facility]), Chest Pain of Unclear Cause ([facility]) Additional Instructions: Please follow-up with your primary care physician, in 2-3 days, please take the medications as prescribed. If you have worsening of your symptoms, do not hesitate to return to the emergency department. Prescriptions: Famotidine [Pepcid] 20 mg PO BID #30 tablet Referrals: LUCIANO MAYNARD MD [ACTIVE STAFF] - Follow up in 3-5 days (OR YOUR PRIMARY CARE. )
[2018-02-09] MEDS ORDERED: FAMOTIDINE 20 MG TABLET PO ONE (06:53)
[2018-02-09] MEDS ORDERED: NORMAL SALINE 1000 ML 1,000 ML IV ONE (06:57)
[2018-02-09 07:28] LABS: ABSOLUTE LYMPHOCYTES (AUTO) 1.8 10^3/uL (0.5-4.7); ABSOLUTE MONOCYTES (AUTO) 0.7 10^3/uL (0.1-1.4); BASOPHILS % (AUTO) 0.7 % (0-2); EOSINOPHILS % (AUTO) 0.7 % (0-6); HEMATOCRIT 34.8 % (36.0-47.0); HEMOGLOBIN 11.1 g/dL (12.0-15.5); LYMPHOCYTES % (AUTO) 32.2 % (13-45); MEAN CORPUSCULAR HEMOGLOBIN 24.8 pg (27.0-33.4); MEAN CORPUSCULAR HGB CONC 31.9 g/dL (32.0-36.0); MEAN CORPUSCULAR VOLUME 78 fl (80-97); MONOCYTES % (AUTO) 12.4 % (3-13); PLATELET COUNT 224 10^3/uL (150-450); RED BLOOD COUNT 4.47 10^6/uL (3.72-5.28); RED CELL DISTRIBUTION WIDTH 14.1 % (11.5-14.0); TOTAL CELLS COUNTED % (AUTO) 100 %; WHITE BLOOD COUNT 5.5 10^3/uL (4.0-10.5)
[2018-02-09 07:40] LABS: ALANINE AMINOTRANSFERASE 13 U/L (9-52); ALBUMIN 4.6 g/dL (3.5-5.0); ALKALINE PHOSPHATASE 52 U/L (38-126); ANION GAP 13 (5-19); ASPARTATE AMINO TRANSFERASE 19 U/L (14-36); BILIRUBIN,DIRECT 0.2 mg/dL (0.0-0.4); BILIRUBIN,TOTAL 0.6 mg/dL (0.2-1.3); BLOOD UREA NITROGEN 11 mg/dL (7-20); CALCIUM 9.8 mg/dL (8.4-10.2); CARBON DIOXIDE 28 mmol/L (22-30); CHLORIDE 103 mmol/L (98-107); GLUCOSE 95 mg/dL (75-110); POTASSIUM 4.1 mmol/L (3.6-5.0); SODIUM 143.5 mmol/L (137-145)
--- NOTE | 2018-02-09 07:43 | EKG REPORT ---
SEVERITY:- ABNORMAL ECG - SINUS TACHYCARDIA BIATRIAL ABNORMALITIES CONSIDER RIGHT VENTRICULAR HYPERTROPHY BORDERLINE PROLONGED QT INTERVAL : Confirmed by: Otoniel An MD 09-Feb-2018 07:42:27
--- NOTE | 2018-02-09 08:11 | RADIOLOGY REPORT (SQ) ---
EXAM DESCRIPTION: CHEST 2 VIEWS COMPLETED DATE/TIME: 02/09/2018 7:47 am REASON FOR STUDY: chest pain COMPARISON: 11/12/2013. EXAM PARAMETERS: NUMBER OF VIEWS: two views TECHNIQUE: Digital Frontal and Lateral radiographic views of the chest acquired. RADIATION DOSE: NA LIMITATIONS: none FINDINGS: LUNGS AND PLEURA: No opacities, masses or pneumothorax. No pleural effusion. MEDIASTINUM AND HILAR STRUCTURES: No masses or contour abnormalities. HEART AND VASCULAR STRUCTURES: Heart normal size. No evidence for failure. BONES: No acute findings. HARDWARE: None in the chest. OTHER: No other significant finding. IMPRESSION: NO ACUTE RADIOGRAPHIC FINDING IN THE CHEST. TECHNICAL DOCUMENTATION: JOB ID: [id number] [employer]- All Rights Reserved Reading location - IP/workstation name: [email or web address]
[2018-02-09 08:36] VITALS: BP 119/88
== END 2018-02-09 08:40 | disposition home or self-care (01) ==
LOC: ER 05:38
DX: R07.9 Chest pain, unspecified (principal); D56.9 Thalassemia, unspecified; F17.210 Nicotine dependence, cigarettes, uncomplicated
CPT/HCPCS: 93005; 99285; 96360; 36415; 84703; 85025; 80053; 84484; 85379; 71046; 93010; J7030

== ENCOUNTER 2018-07-02 06:48 | Emergency (ER) | payer SELFPAY ==
--- NOTE | 2018-07-02 08:11 | RADIOLOGY REPORT (SQ) ---
EXAM DESCRIPTION: U/S OB TRANSVAGINAL W/O DOP COMPLETED DATE/TIME: 07/02/2018 7:53 am REASON FOR STUDY: LMP 2 months ago, cramps w/ clots COMPARISON: None. TECHNIQUE: Transabdominal static and realtime grayscale images acquired of the pelvis. Additional se lected spectral and color Doppler images recorded. All images stored on PACs. CLINICAL AGE: Unknown BHCG: Not available. LIMITATIONS: None. FINDINGS: UTERUS: No visualized intrauterine . RIGHT ADNEXA: Normal ovary with normal vascular flow. No adnexal free fluid. No adnexal masses. LEFT ADNEXA: Normal ovary with normal vascular flow. No adnexal free fluid. No adnexal masses. FREE FLUID: None. OTHER: Cervical length 3.9 cm IMPRESSION: NO VISUALIZED INTRA- OR EXTRAUTERINE . bHCG LEVEL NOT AVAILABLE FOR CORRELATION WITH US FINDINGS. ECTOPIC CANNOT BE EXCLUDED. FOLLOW-UP ULTRASOUND AND SERIAL BHCG LEVELS STRONGLY RECOMMENDED TO ACCURATELY ASSESS STATU S. TECHNICAL DOCUMENTATION: JOB ID: [id number] [employer]- All Rights Reserved Reading location - IP/workstation name: [email or web address]
[2018-07-02 08:16] LABS: ABSOLUTE BASOPHILS # (AUTO) 0.1 10^3/uL (0.0-0.2); ABSOLUTE LYMPHOCYTES (AUTO) 1.6 10^3/uL (0.5-4.7); ABSOLUTE MONOCYTES (AUTO) 0.6 10^3/uL (0.1-1.4); ABSOLUTE NEUT (AUTO) 5.8 10^3/uL (1.7-8.2); BASOPHILS % (AUTO) 0.8 % (0-2); EOSINOPHILS % (AUTO) 0.1 % (0-6); HEMATOCRIT 33.9 % (36.0-47.0); LYMPHOCYTES % (AUTO) 19.8 % (13-45); MEAN CORPUSCULAR HEMOGLOBIN 25.1 pg (27.0-33.4); MEAN CORPUSCULAR HGB CONC 32.4 g/dL (32.0-36.0); MEAN CORPUSCULAR VOLUME 78 fl (80-97); MONOCYTES % (AUTO) 7.3 % (3-13); PLATELET COUNT 208 10^3/uL (150-450); RED BLOOD COUNT 4.38 10^6/uL (3.72-5.28); RED CELL DISTRIBUTION WIDTH 14.1 % (11.5-14.0); TOTAL CELLS COUNTED % (AUTO) 100 %
[2018-07-02 08:34] LABS: ALANINE AMINOTRANSFERASE 21 U/L (9-52); ALBUMIN 4.1 g/dL (3.5-5.0); ALKALINE PHOSPHATASE 51 U/L (38-126); ANION GAP 7 (5-19); ASPARTATE AMINO TRANSFERASE 17 U/L (14-36); BILIRUBIN,DIRECT 0.1 mg/dL (0.0-0.4); BILIRUBIN,TOTAL 0.7 mg/dL (0.2-1.3); BLOOD UREA NITROGEN 12 mg/dL (7-20); CALCIUM 9.6 mg/dL (8.4-10.2); CARBON DIOXIDE 27 mmol/L (22-30); CHLORIDE 107 mmol/L (98-107); GLUCOSE 74 mg/dL (75-110); POTASSIUM 3.6 mmol/L (3.6-5.0); SODIUM 140.6 mmol/L (137-145); TOTAL PROTEIN 7.7 g/dL (6.3-8.2)
[2018-07-02 09:34] VITALS: BP 99/69
[2018-07-02 09:45] LABS: APPEARANCE,URINE CLOUDY; BILIRUBIN,URINE NEGATIVE (NEGATIVE); COLOR,URINE YELLOW; GLUCOSE, URINE NEGATIVE (NEGATIVE); KETONES,URINE TRACE mg/dL (NEGATIVE); LEUKOCYTE ESTERASE,URINE TRACE (NEGATIVE); NITRITE,URINE NEGATIVE (NEGATIVE); PROTEIN,URINE 30 mg/dL (NEGATIVE); URINE SPECIFIC GRAVITY 1.025
[2018-07-02 12:03] LABS: CHLAM PCR DETECTED (NOT DETECT); GON PCR DETECTED (NOT DETECT)
--- NOTE | 2018-07-02 13:35 | ER Document Report ---
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 Patient describes the bleeding has bright red with dark red and blue clots. She states she has not had a period in 2 months and further states " I took a test 2 weeks ago but did not come to the emergency department". TRAVEL OUTSIDE OF THE [place] IN LAST 30 DAYS: No - Related Data Allergies/Adverse Reactions: No Known Allergies Allergy (Verified 02/10/17 02:40) Past Medical History - General Information source: Patient - Social History Smoking Status: Current Every Day Smoker Cigarette use (# per day): Yes - a few cigarettes per day Chew tobacco use (# tins/day): No Smoking Education Provided: No Frequency of alcohol use: None Family History: Reviewed & Not Pertinent - Immunizations Immunizations up to date: Yes Hx Diphtheria, Pertussis, Tetanus Vaccination: Yes Hx Pneumococcal Vaccination: 03/14/00 Review of Systems - Review of Systems Constitutional: No symptoms reported EENT: No symptoms reported Cardiovascular: No symptoms reported Respiratory: No symptoms reported Gastrointestinal: No symptoms reported Genitourinary: No symptoms reported Female Genitourinary: See HPI, , Vaginal bleeding Musculoskeletal: No symptoms reported Skin: No symptoms reported Hematologic/Lymphatic: No symptoms reported Neurological/Psychological: No symptoms reported -: Yes All other systems reviewed and negative Physical Exam - Vital signs Vitals: Temp Pulse Resp BP Pulse Ox 97.8 F 119 H 22 H 111/73 99 07/02/18 06:55 07/02/18 06:55 07/02/18 06:55 07/02/18 06:55 07/02/18 06:55 - Notes Notes: GENERAL: Alert, interacts well. No acute distress. HEAD: Normocephalic, atraumatic. EYES: Pupils equal, round, and reactive to light. Extraocular movements intact. ENT: Oral mucosa moist, tongue midline. NECK: Full range of motion. Supple. Trachea midline. LUNGS: Clear to auscultation bilaterally, no wheezes, rales, or rhonchi. No respiratory distress. HEART: Regular rate and rhythm. No murmurs, gallops, or rubs. ABDOMEN: Soft, non-tender. Non-distended. Bowel sounds present in all 4 quadrants. No guarding, rigidity, or rebound. EXTREMITIES: Moves all 4 extremities spontaneously. No edema. No cyanosis. NEUROLOGICAL: Alert and oriented x3. Normal speech. PSYCH: Tearful. SKIN: Warm, dry, normal turgor. No rashes or lesions noted. Course - Re-evaluation Re-evalutation: 07/02/18 12:46 The patient's chlamydia/gonorrhea PCR test came back positive for both diseases. She will be contacted by the charge nurse to return to be treated. - Vital Signs Vital signs: Temp Pulse Resp BP Pulse Ox 97.8 F 104 H 16 99/69 L 100 07/02/18 09:33 07/02/18 09:33 07/02/18 09:33 07/02/18 09:33 07/02/18 09:33 - Laboratory Result Diagrams: 07/02/18 08:03 07/02/18 08:03 Laboratory results interpreted by me: 07/02/18 07/02/18 07/02/18 08:03 08:03 09:28 Hgb 11.0 L Hct 33.9 L MCV 78 L MCH 25.1 L RDW 14.1 H Glucose 74 L Urine Protein Urine Ketones Urine Blood Urine Urobilinogen Ur Leukocyte Esterase Urine Ascorbic Acid Chlamydia DNA (PCR) DETECTED H N.gonorrhoeae DNA (PCR) DETECTED H 07/02/18 09:28 Hgb Hct MCV MCH RDW Glucose Urine Protein 30 H Urine Ketones TRACE H Urine Blood LARGE H Urine Urobilinogen 4.0 H Ur Leukocyte Esterase TRACE H Urine Ascorbic Acid 40 H Chlamydia DNA (PCR) N.gonorrhoeae DNA (PCR) - Diagnostic Test Radiology reviewed: Image reviewed, Reports reviewed - Ultrasound does not show intrauterine or extrauterine , or any other abnormalities. Discharge - Discharge Clinical Impression: Vaginal bleeding, Pelvic cramping Condition: Stable Disposition: HOME, SELF-CARE Additional Instructions: Pelvic Pain There are many causes of pain in the pelvic area. The cause could be the tubes, ovaries, uterus, intestines, appendix, pelvic muscles and connective tissue, or the urinary tract. The cause of your pelvic pain is not clear. However, it seems safe to treat you outside the hospital. If the pain sounds like a temporary problem, we sometimes wait to see if it goes away. Other patients may need additional tests, such as pelvic ultrasound or cultures. Conditions may change. Call us or come back for reexamination if any problems occur, such as: (1) Pain that becomes more severe, steady, or becomes concentrated in one specific area. Also, pain that is more severe with movement or coughing. (2) Vomiting that persists or becomes more frequent. (3) Blood in the vomitus, urine, or bowel movements. Blood in the stool may have a tarry or black appearance. (4) Shaking chills or fever greater than 100 degrees. (5) The abdomen becomes more distended or swollen. (6) Bowel movements cease. (7) Heavy vaginal bleeding. Your vaginal bleeding which is heavier than normal with clots is probably due to going through a cycle without having a period. Your serum test was negative for recent . Your ultrasound did not show any abnormalities. The urine specimen you provided will be tested for infections. If there is a problem you will be contacted. You can take Tylenol and ibuprofen for cramps. Follow-up with [facility] if not improving. RETURN TO THE EMERGENCY ROOM IF ANY NEW OR WORSENING SYMPTOMS. [place]ie[place] Attestation: 07/02/18 09:10 I personally performed the services described in the documentation, reviewed and edited the documentation which was dictated to the scribe in my presence, and it accurately records my words and actions. I personally performed the services described in the documentation, reviewed and edited the documentation which was dictated to the scribe in my presence, and it accurately records my words and actions.
== END 2018-07-02 10:10 | disposition home or self-care (01) ==
LOC: ER 06:48
DX: N93.8 Other specified abnormal uterine and vaginal bleeding (principal); R10.2 Pelvic and perineal pain; F17.210 Nicotine dependence, cigarettes, uncomplicated
CPT/HCPCS: 36415; 76817; 80053; 81001; 84702; 85025; 87491; 87591; 99284

== ENCOUNTER 2018-10-31 10:41 | Emergency (ER) | payer SELFPAY ==
[2018-10-31 10:49] VITALS: BP 107/73
[2018-10-31] MEDS ORDERED: NORMAL SALINE 1000 ML 1,000 ML IV ONE (11:57)
[2018-10-31 12:16] LABS: APPEARANCE,URINE SLIGHTLY-CLOUDY; BILIRUBIN,URINE NEGATIVE (NEGATIVE); COLOR,URINE YELLOW; GLUCOSE, URINE NEGATIVE (NEGATIVE); KETONES,URINE TRACE mg/dL (NEGATIVE); LEUKOCYTE ESTERASE,URINE TRACE (NEGATIVE); NITRITE,URINE NEGATIVE (NEGATIVE); PROTEIN,URINE NEGATIVE (NEGATIVE); URINE SPECIFIC GRAVITY 1.027
--- NOTE | 2018-10-31 12:28 | RADIOLOGY REPORT (SQ) ---
EXAM DESCRIPTION: CT HEAD WITHOUT COMPLETED DATE/TIME: 10/31/2018 12:19 pm REASON FOR STUDY: syncope, Head injury, neck pain COMPARISON: None. TECHNIQUE: Axial images acquired through the brain without intravenous contrast. Images reviewed wi th bone, brain and subdural windows. Additional sagittal and coronal reconstructions were generated. Images stored on PACS. All CT scanners at this facility use dose modulation, iterative reconstruction, and/or weight based d osing when appropriate to reduce radiation dose to as low as reasonably achievable (ALARA). [facility]: Dose Right [facility]: CareDose [facility]: Dose Right [facility]: Teradose 4D [facility]: Smart Tricycle RADIATION DOSE: CT Rad equipment meets quality standard of care and radiation dose reduction techniq ues were employed. CTDIvol: 48.5 mGy. DLP: 855 mGy-cm. mGy. LIMITATIONS: None. FINDINGS: VENTRICLES: Normal size and contour. CEREBRUM: No masses. No hemorrhage. No midline shift. No evidence for acute infarction. Normal gra y/white matter differentiation. No areas of low density in the white matter. CEREBELLUM: No masses. No hemorrhage. No alteration of density. No evidence for acute infarction. EXTRAAXIAL SPACES: No fluid collections. No masses. ORBITS AND GLOBE: No intra- or extraconal masses. Normal contour of globe without masses. CALVARIUM: No fracture. PARANASAL SINUSES: No fluid or mucosal thickening. SOFT TISSUES: No mass or hematoma. OTHER: No other significant finding. IMPRESSION: No acute intracranial pathology. EVIDENCE OF ACUTE STROKE: NO. COMMENT: Quality ID # [id number]: Final reports with documentation of one or more dose reduction techniques (e.g., Automated exposure control, adjustment of the mA and/or kV according to patient size, use of iterative reconstruction technique) TECHNICAL DOCUMENTATION: JOB ID: [id number] [email or web address]- All Rights Reserved Reading location - IP/workstation name: [email or web address]
--- NOTE | 2018-10-31 12:30 | RADIOLOGY REPORT (SQ) ---
EXAM DESCRIPTION: CT CERVICAL SPINE WITHOUT COMPLETED DATE/TIME: 10/31/2018 12:19 pm REASON FOR STUDY: syncope, Head injury, neck pain COMPARISON: None. TECHNIQUE: Axial images acquired through the cervical spine without intravenous contrast. Images re viewed with lung, soft tissue and bone windows. Reconstructed coronal and sagittal MPR images review ed. Images stored on PACS. All CT scanners at this facility use dose modulation, iterative reconstruction, and/or weight based d osing when appropriate to reduce radiation dose to as low as reasonably achievable (ALARA). [facility]: Dose Right [facility]: CareDose [facility]: Dose Right [facility]: Teradose 4D [facility]: Smart gDecide RADIATION DOSE: CT Rad equipment meets quality standard of care and radiation dose reduction techniq ues were employed. CTDIvol: 14.0 mGy. DLP: 289 mGy-cm. mGy. LIMITATIONS: None. FINDINGS: ALIGNMENT: Straightening of the normal cervical lordosis, possibly positional. MINERALIZATION: Normal. VERTEBRAL BODIES: No fractures or dislocation. DISCS: No significant disc disease. FACETS, LATERAL MASSES, POSTERIOR ELEMENTS: No fractures. No dislocation. No acute findings. HARDWARE: None in the spine. VISUALIZED RIBS: No fractures. LUNG APICES AND SOFT TISSUES: No significant or acute findings. OTHER: No other significant finding. IMPRESSION: No fracture or static subluxation of the cervical spine. Straightening of the normal ce rvical lordosis, possibly positional. TECHNICAL DOCUMENTATION: JOB ID: [id number] Quality ID # [id number]: Final reports with documentation of one or more dose reduction techniques (e.g., Au tomated exposure control, adjustment of the mA and/or kV according to patient size, use of iterative reconstruction technique) 2010 [employer]- All Rights Reserved Reading location - IP/workstation name: [email or web address]
--- NOTE | 2018-10-31 13:11 | ER Document Report ---
ED General - General Chief Complaint: Abdominal Pain Stated Complaint: ABDOMINAL PAIN Time Seen by Provider: 10/31/18 11:30 Mode of Arrival: Ambulatory Information source: Patient Notes: Patient presents stating that she has had lower pelvic abdominal pain since yesterday. Patient states that she was walking to a restaurant today got lightheaded and passed out hitting her head on the pavement. Patient states that she had a brief positive LOC and complains of only mild headache pain since then. Patient denies any nausea vomiting or diarrhea. Patient denies any urinary symptoms. Patient is concerned that she may be . TRAVEL OUTSIDE OF THE [place] IN LAST 30 DAYS: No - HPI Onset: Yesterday Onset/Duration: Persistent Quality of pain: Achy Pain Level: 3 Associated symptoms: Headache. denies: Nonproductive cough, Productive cough, Diarrhea, Fever, Nausea, Vomiting, Weakness Exacerbated by: Denies Relieved by: Denies Similar symptoms previously: No Recently seen / treated by doctor: No - Related Data Allergies/Adverse Reactions: No Known Allergies Allergy (Verified 02/10/17 02:40) Past Medical History - General Information source: Patient - Social History Smoking Status: Current Every Day Smoker Frequency of alcohol use: None Drug Abuse: None Occupation: None Lives with: Spouse/Significant other Family History: Reviewed & Not Pertinent Patient has suicidal ideation: No Patient has homicidal ideation: No Renal/ Medical History: Denies: Hx Peritoneal Dialysis GI Medical History: Reports: Hx Pancreatitis Surgical Hx: Negative - Immunizations Immunizations up to date: Yes Hx Diphtheria, Pertussis, Tetanus Vaccination: Yes Hx Pneumococcal Vaccination: 03/14/00 Review of Systems - Review of Systems Constitutional: No symptoms reported. denies: Fever, Recent illness EENT: No symptoms reported Cardiovascular: Syncope, Lightheaded. denies: Chest pain Respiratory: No symptoms reported. denies: Cough, Short of breath Gastrointestinal: Abdominal pain. denies: Diarrhea, Nausea, Vomiting Genitourinary: No symptoms reported. denies: Dysuria Female Genitourinary: No symptoms reported Musculoskeletal: No symptoms reported. denies: Back pain, Neck pain Skin: No symptoms reported Neurological/Psychological: Lost consciousness, Headaches Physical Exam - Vital signs Vitals: Temp Pulse Resp BP Pulse Ox 98.5 F 98 16 107/73 99 10/31/18 10:47 10/31/18 10:47 10/31/18 10:47 10/31/18 10:47 10/31/18 10:47 - General General appearance: Appears well, Alert In distress: None Notes: Patient eating fried food - HEENT Head: Normocephalic, Atraumatic Eyes: Normal Conjunctiva: Normal Nasal: Normal Mouth/Lips: Normal Neck: Supple, Other - With posterior midline tenderness, no step-off or deformity. No: Lymphadenopathy - Respiratory Respiratory status: No respiratory distress Chest status: Nontender Breath sounds: Normal. No: Rales, Rhonchi, Stridor, Wheezing Chest palpation: Normal - Cardiovascular Rhythm: Regular Heart sounds: S1 appreciated, S2 appreciated - Abdominal Inspection: Normal Distension: No distension Bowel sounds: Normal Tenderness: Tender - Lower pelvic tenderness Organomegaly: No organomegaly - Back Back: Normal, Nontender. No: CVA tenderness, Vertebra tenderness - Extremities General upper extremity: Normal inspection, Normal ROM General lower extremity: Normal inspection, Normal ROM - Neurological Neuro grossly intact: Yes Cognition: Normal Orientation: AAOx4 [place] Coma Scale Eye Opening: Spontaneous [place] Coma Scale Verbal: Oriented [place] Coma Scale Motor: Obeys Commands Jesica Coma Scale Total: 15 Speech: Normal Cerebellar coordination: Normal. No: Gait ataxia Motor strength normal: LUE, RUE, LLE, RLE - Psychological Associated symptoms: Normal affect, Normal mood - Skin Skin Temperature: Warm Skin Moisture: Dry Skin Color: Normal Course - Re-evaluation Re-evalutation: 10/31/18 12:35 Does not want to stay for any diagnostic evaluation at this time. Patient states that she would like to be called if anything is abnormal. The patient has decided not to proceed with further recommended testing or treatment to determine the cause of her symptoms. The risk and alternatives to the recommendation were discussed the patient voiced understanding. The patient appears clinically to have the capacity to make this decision. The patient was instructed that they could return to the ER at any time to complete the testing or treatment. - Vital Signs Vital signs: Temp Pulse Resp BP Pulse Ox 98.5 F 98 16 107/73 99 10/31/18 10:47 10/31/18 10:47 10/31/18 10:47 10/31/18 10:47 10/31/18 10:47 - Laboratory Laboratory results interpreted by me: 10/31/18 11:25 Urine Ketones TRACE H Urine Urobilinogen 2.0 H Ur Leukocyte Esterase TRACE H 10/31/18 17:43 Labs- Entire Visit 10/31/18 11:25 Urine Color YELLOW Urine Appearance SLIGHTLY-CLOUDY Urine pH 6.0 Ur Specific Hale 1.027 Urine Protein NEGATIVE Urine Glucose (UA) NEGATIVE Urine Ketones TRACE H Urine Blood NEGATIVE Urine Nitrite NEGATIVE Urine Bilirubin NEGATIVE Urine Urobilinogen 2.0 H Ur Leukocyte Esterase TRACE H Urine WBC (Auto) 2 Urine RBC (Auto) 1 Squamous Epi Cells Auto 12 Urine Mucus (Auto) FEW Urine Ascorbic Acid NEGATIVE Urine HCG, Qual NEGATIVE - Diagnostic Test Radiology reviewed: Reports reviewed Discharge - Discharge Clinical Impression: Lower abdominal pain Syncope Qualifiers: Syncope type: unspecified Qualified Code(s): R55 - Syncope and collapse Head injury Qualifiers: Encounter type: initial encounter Qualified Code(s): S09.90XA - Unspecified injury of head, initial encounter Condition: Stable Disposition: AGAINST MEDICAL ADVICE
== END 2018-10-31 12:45 | disposition left against medical advice (07) ==
LOC: ER 10:41
DX: R10.2 Pelvic and perineal pain (principal); R55 Syncope and collapse; S09.90XA Unspecified injury of head, initial encounter; R51 Headache; W19.XXXA Unspecified fall, initial encounter; Y93.01 Activity, walking, marching and hiking; F17.200 Nicotine dependence, unspecified, uncomplicated; R42 Dizziness and giddiness
CPT/HCPCS: 70450; 72125; 81001; 81025; 99284

== ENCOUNTER 2019-01-27 16:32 | Emergency (ER) | payer SELFPAY ==
--- NOTE | 2019-01-27 16:49 | ER Document Report ---
ED Medical Screen (RME) - General Chief Complaint: Abdominal Pain Stated Complaint: ABDOMINAL PAIN Time Seen by Provider: 01/27/19 16:45 Mode of Arrival: Ambulatory Information source: Patient Notes: 23-year-old female presents emergency department with lower abdominal pain. Also reports it feels weird when she voids. Reports she wants a test and STD test. She denies vaginal discharge. She denies fever and vomiting but reports some diarrhea for the past 2 days. She reports she is sexually active with one partner and does not use condoms or control. Reports she took a test one was positive one was negative. I have greeted and performed a rapid initial assessment of this patient. A comprehensive ED assessment and evaluation of the patient, analysis of test results and completion of the medical decision making process will be conducted by additional ED providers. Dictation of this chart was performed using voice recognition software; therefore, there may be some unintended grammatical errors. TRAVEL OUTSIDE OF THE [place] IN LAST 30 DAYS: No - Related Data Allergies/Adverse Reactions: No Known Allergies Allergy (Verified 01/27/19 16:47) Past Medical History - Social History Family history: CAD, DM, Hyperlipidemia, Hypertension Renal/ Medical History: Denies: Hx Peritoneal Dialysis GI Medical History: Reports: Hx Pancreatitis - Immunizations Immunizations up to date: Yes Hx Diphtheria, Pertussis, Tetanus Vaccination: Yes Physical Exam - Vital signs Vitals: Temp Pulse Resp BP Pulse Ox 98.1 F 111 H 20 114/71 100 01/27/19 16:36 01/27/19 16:36 01/27/19 16:36 01/27/19 16:36 01/27/19 16:36 Course - Vital Signs Vital signs: Temp Pulse Resp BP Pulse Ox 98.1 F 111 H 20 114/71 100 01/27/19 16:36 01/27/19 16:36 01/27/19 16:36 01/27/19 16:36 01/27/19 16:36
[2019-01-27 17:32] LABS: ABSOLUTE EOSINOPHILS # (AUTO) 0.1 10^3/uL (0.0-0.6); ABSOLUTE LYMPHOCYTES (AUTO) 1.7 10^3/uL (0.5-4.7); ABSOLUTE MONOCYTES (AUTO) 0.5 10^3/uL (0.1-1.4); ABSOLUTE NEUT (AUTO) 3.1 10^3/uL (1.7-8.2); BASOPHILS % (AUTO) 0.6 % (0-2); EOSINOPHILS % (AUTO) 2.5 % (0-6); HEMATOCRIT 33.8 % (36.0-47.0); HEMOGLOBIN 10.6 g/dL (12.0-15.5); LYMPHOCYTES % (AUTO) 30.7 % (13-45); MEAN CORPUSCULAR HEMOGLOBIN 24.4 pg (27.0-33.4); MEAN CORPUSCULAR HGB CONC 31.4 g/dL (32.0-36.0); MEAN CORPUSCULAR VOLUME 78 fl (80-97); MONOCYTES % (AUTO) 9.9 % (3-13); PLATELET COUNT 235 10^3/uL (150-450); RED BLOOD COUNT 4.34 10^6/uL (3.72-5.28); RED CELL DISTRIBUTION WIDTH 14.2 % (11.5-14.0); SEGMENTED NEUTROPHILS % (AUTO) 56.3 % (42-78); TOTAL CELLS COUNTED % (AUTO) 100 %; WHITE BLOOD COUNT 5.5 10^3/uL (4.0-10.5)
[2019-01-27 17:46] LABS: ALKALINE PHOSPHATASE 47 U/L (38-126); ANION GAP 8 (5-19); ASPARTATE AMINO TRANSFERASE 13 U/L (14-36); BILIRUBIN,TOTAL 0.2 mg/dL (0.2-1.3); BLOOD UREA NITROGEN 8 mg/dL (7-20); CALCIUM 9.2 mg/dL (8.4-10.2); CARBON DIOXIDE 26 mmol/L (22-30); CHLORIDE 104 mmol/L (98-107); GLUCOSE 99 mg/dL (75-110); POTASSIUM 4.3 mmol/L (3.6-5.0); TOTAL PROTEIN 7.6 g/dL (6.3-8.2)
--- NOTE | 2019-01-27 17:50 | ER Document Report ---
ED General - General Chief Complaint: STD Exposure Stated Complaint: ABDOMINAL PAIN Time Seen by Provider: 01/27/19 16:45 Mode of Arrival: Ambulatory Information source: Patient Notes: This 23-year-old female presents to the emergency department with request for test and STD test. She reports she took 2 home tests, one was positive and the other was negative. She also reports she is having low abdominal pain and is worried she has an STD. Denies pain with void. Denies vaginal discharge. Denies fever vomiting diarrhea. TRAVEL OUTSIDE OF THE [place] IN LAST 30 DAYS: No - HPI Onset: Yesterday Quality of pain: No pain Associated symptoms: None Exacerbated by: Denies Relieved by: Denies Similar symptoms previously: No Recently seen / treated by doctor: No - Related Data Allergies/Adverse Reactions: No Known Allergies Allergy (Verified 01/27/19 16:47) Past Medical History - General Information source: Patient Last Menstrual Period: Last month - Social History Smoking Status: Current Every Day Smoker Chew tobacco use (# tins/day): No Frequency of alcohol use: None Drug Abuse: None Family History: Reviewed & Not Pertinent Patient has suicidal ideation: No Patient has homicidal ideation: No Renal/ Medical History: Denies: Hx Peritoneal Dialysis GI Medical History: Reports: Hx Pancreatitis Surgical Hx: Negative - Immunizations Immunizations up to date: Yes Hx Diphtheria, Pertussis, Tetanus Vaccination: Yes Hx Pneumococcal Vaccination: 03/14/00 Review of Systems - Review of Systems Notes: Review HPI for review of systems., All other systems negative Physical Exam - Vital signs Vitals: Temp Pulse Resp BP Pulse Ox 98.1 F 111 H 20 114/71 100 01/27/19 16:36 01/27/19 16:36 01/27/19 16:36 01/27/19 16:36 01/27/19 16:36 - General General appearance: Appears well, Alert - HEENT Head: Normocephalic Eyes: Normal Conjunctiva: Normal Extraocular movements intact: Yes Neck: Normal, Supple - Respiratory Respiratory status: No respiratory distress Breath sounds: Normal - Cardiovascular Rhythm: Regular - Abdominal Inspection: Normal Distension: No distension Tenderness: Nontender Organomegaly: No organomegaly - Genitourinary External exam: Normal Speculum exam: Vaginal discharge Vaginal bleeding: None Bimanuel exam: Normal - Back Back: Normal - Extremities General upper extremity: Normal ROM General lower extremity: Normal ROM - Neurological Neuro grossly intact: Yes Cognition: Normal Orientation: AAOx4 [place] Coma Scale Eye Opening: Spontaneous [place] Coma Scale Verbal: Oriented [place] Coma Scale Motor: Obeys Commands [place] Coma Scale Total: 15 Speech: Normal Motor strength normal: LUE, RUE, LLE, RLE - Psychological Associated symptoms: Normal affect, Normal mood - Skin Skin Temperature: Warm Skin Moisture: Dry Skin Color: Normal Course - Re-evaluation Re-evalutation: 01/27/19 18:04 23-year-old female presents emergency department requesting a test and STD testing. Patient was instructed on STD cultures. She request to be treated prophylactically because she believes she has has an STD. 01/27/19 18:08 Patient test is positive. Quant ordered with transvaginal ultrasound. Patient informed of positive test. 01/27/19 20:14 Patient was instructed on no pole identified on ultrasound. Patient became very irritated. She was treated Prophylactically for STD. She was instructed on the culture nurse and the ability to call her for results. She was instructed on the importance of follow-up with [facility] or the health department for repeat ultrasound within the week. She did verbalize understanding but left without her discharge instructions. Obstetrics Ultrasound 01/27/19 18:04 IMPRESSION: Intrauterine gestational sac and yolk sac with no pole identified on this exam. Short-term follow-up pelvic ultrasound recommended to re-evaluate and document a viable intrauterine . Trimester of : First trimester - 0 to 13 weeks. 01/27/19 20:15 STD cultures negative - Vital Signs Vital signs: Temp Pulse Resp BP Pulse Ox 98.5 F 86 16 112/72 100 01/27/19 19:46 01/27/19 19:46 01/27/19 19:46 01/27/19 19:46 01/27/19 19:46 - Laboratory Result Diagrams: 01/27/19 17:15 01/27/19 17:15 Laboratory results interpreted by me: 01/27/19 01/27/19 01/27/19 17:15 17:15 17:15 Hgb 10.6 L Hct 33.8 L MCV 78 L MCH 24.4 L MCHC 31.4 L RDW 14.2 H AST 13 L Serum HCG, Qual POSITIVE H Beta HCG, Quant Urine Urobilinogen Ur Leukocyte Esterase Urine Ascorbic Acid 01/27/19 01/27/19 17:15 17:15 Hgb Hct MCV MCH MCHC RDW AST Serum HCG, Qual Beta HCG, Quant 12355.00 H Urine Urobilinogen 4.0 H Ur Leukocyte Esterase SMALL H Urine Ascorbic Acid 40 H - Diagnostic Test Radiology reviewed: Reports reviewed Procedures - Pelvic Exam Pelvic exam Time completed: 17:50 Cultures obtained: Yes Wet prep obtained: Yes Herpes culture obtained: No POC sent to lab: No Foreign body removed: No Bimanual exam performed: Yes Witnessed by: DENYS GORE Discharge - Discharge Clinical Impression: Lower abdominal pain, Condition: Stable Disposition: HOME, SELF-CARE Instructions: Azithromycin ([facility]), Chlamydia ([facility]), Gonorrhea ([facility]), 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 STD cultures are pending. You may contact the culture nurse at [phone] Tuesday through Tuesday 8 AM till 4 PM for your results. *Your ultrasound was inconclusive. No heartbeat was detected at this time. This may be because you are barely . You need to follow-up for a repeat ultrasound. *Follow up with an [facility] or health department within one week for a recheck and full evaluation to begin care *Return to ED for worsening condition, changes, needs
[2019-01-27 17:53] LABS: APPEARANCE,URINE SLIGHTLY-CLOUDY; BILIRUBIN,URINE NEGATIVE (NEGATIVE); COLOR,URINE YELLOW; GLUCOSE, URINE NEGATIVE (NEGATIVE); KETONES,URINE NEGATIVE (NEGATIVE); LEUKOCYTE ESTERASE,URINE SMALL (NEGATIVE); NITRITE,URINE NEGATIVE (NEGATIVE); PROTEIN,URINE NEGATIVE (NEGATIVE); URINE SPECIFIC GRAVITY 1.028
[2019-01-27 18:09] LABS: EPITHELIALS (WET MOUNT) 3+ EPITHELIALS SEEN; T.VAGINALIS (WET MOUNT) NO TRICHOMONAS SEEN; WBCS (WET MOUNT) FEW WBCS SEEN; YEAST (WET MOUNT) NO YEAST SEEN
[2019-01-27] MEDS ORDERED: AZITHROMYCIN 250 MG TABLET PO ONE (19:27)
[2019-01-27] MEDS ORDERED: LIDOCAINE 1% INJ-PF (10 MG/ML) 30 ML SDV INJ ONE (19:27)
[2019-01-27] MEDS ORDERED: CEFTRIAXONE INJ 250 MG VIAL IM ONE (19:27)
[2019-01-27 19:39] LABS: CHLAM PCR NOT DETECTED (NOT DETECT)
[2019-01-27 19:47] VITALS: BP 112/72
--- NOTE | 2019-01-27 19:59 | RADIOLOGY REPORT (SQ) ---
EXAM DESCRIPTION: U/S OB TRANSVAGINAL W/O DOP COMPLETED DATE/TIME: 01/27/2019 6:56 pm REASON FOR STUDY: abd pain pregn COMPARISON: None. TECHNIQUE: Transvaginal static and realtime grayscale images acquired of the pelvis. Additional richar cted spectral and color Doppler images recorded. All images stored on PACs. CLINICAL AGE: Not available. bHCG: Not available. LIMITATIONS: The exam was terminated prematurely at the patient's request. Per the technologist, the patient refused to finish the exam and asked to return to the emergency dep artment. FINDINGS: UTERUS: The uterus measured 8.4 x 5.0 x 6.0 cm. The cervix measures 2.7 cm in length. GESTATIONAL SAC: Normal shape. YOLK SAC: Yes. POLE: None identified. RIGHT ADNEXA: The right ovary measures 4.3 x 2.7 x 2.3 cm. There is a 1.0 cm corpus luteum cyst. Fl ow by Doppler was shown to the right ovary. LEFT ADNEXA: The left ovary measures 1.8 x 2.2 x 1.7 cm. Unable to evaluate flow to the left ovary d ue to patient's refusal to finish the exam. FREE FLUID: None. IMPRESSION: Intrauterine gestational sac and yolk sac with no pole identified on this exam. S hort-term follow-up pelvic ultrasound recommended to re-evaluate and document a viable intrauterine p regnancy. Trimester of : First trimester - 0 to 13 weeks. TECHNICAL DOCUMENTATION: JOB ID: [id number] [employer]- All Rights Reserved Reading location - IP/workstation name: [email or web address]
== END 2019-01-27 19:46 | disposition home or self-care (01) ==
LOC: ER 16:32
DX: O26.891 Other specified pregnancy related conditions, first trimester (principal); Z20.2 Contact with and (suspected) exposure to infections with a predominantly sexual mode of transmission; R10.9 Unspecified abdominal pain; R10.30 Lower abdominal pain, unspecified; O99.331 Smoking (tobacco) complicating pregnancy, first trimester; Z3A.00 Weeks of gestation of pregnancy not specified
CPT/HCPCS: 99283; 96372; 36415; 87210; 84702; 84703; 85025; 80053; 81001; 87491; 87591; 76817; J3490; J0696

== ENCOUNTER 2019-02-23 15:52 | Emergency (ER) | payer SELFPAY ==
[2019-02-23 16:02] VITALS: BP 117/74
--- NOTE | 2019-02-23 17:37 | ER Document Report ---
ED Medical Screen (RME) - General Chief Complaint: Vaginal Bleeding Stated Complaint: VAGINAL BLEEDING Time Seen by Provider: 02/23/19 17:32 Mode of Arrival: Ambulatory Information source: Patient Notes: Patient presents G2, P1 complaining of lower pelvic pain and vaginal bleeding since midnight. Patient also reports urinary frequency. Patient is uncertain how far along she is as her last ultrasound she feels was an accurate. Patient states that she has had positive movement. I have greeted and performed a rapid initial assessment of this patient. A comprehensive ED assessment and evaluation of the patient, analysis of test results and completion of the medical decision making process will be conducted by additional ED providers. TRAVEL OUTSIDE OF THE [place] IN LAST 30 DAYS: No - Related Data Allergies/Adverse Reactions: No Known Allergies Allergy (Verified 02/23/19 17:18) Past Medical History - Social History Family history: CAD, DM, Hyperlipidemia, Hypertension Renal/ Medical History: Denies: Hx Peritoneal Dialysis GI Medical History: Reports: Hx Pancreatitis - Immunizations Immunizations up to date: Yes Hx Diphtheria, Pertussis, Tetanus Vaccination: Yes Physical Exam - Vital signs Vitals: Temp Pulse Resp BP Pulse Ox 98.1 F 106 H 20 117/74 99 02/23/19 16:00 02/23/19 16:00 02/23/19 16:00 02/23/19 16:00 02/23/19 16:00 - Abdominal Tenderness: Tender - Lower pelvic tenderness Course - Vital Signs Vital signs: Temp Pulse Resp BP Pulse Ox 98.1 F 106 H 20 117/74 99 02/23/19 16:00 02/23/19 16:00 02/23/19 16:00 02/23/19 16:00 02/23/19 16:00
[2019-02-23 18:07] LABS: ABSOLUTE LYMPHOCYTES (AUTO) 2.1 10^3/uL (0.5-4.7); ABSOLUTE MONOCYTES (AUTO) 0.8 10^3/uL (0.1-1.4); ABSOLUTE NEUT (AUTO) 5.8 10^3/uL (1.7-8.2); BASOPHILS % (AUTO) 0.5 % (0-2); EOSINOPHILS % (AUTO) 0.5 % (0-6); HEMATOCRIT 34.6 % (36.0-47.0); HEMOGLOBIN 11.2 g/dL (12.0-15.5); LYMPHOCYTES % (AUTO) 24.2 % (13-45); MEAN CORPUSCULAR HEMOGLOBIN 24.9 pg (27.0-33.4); MEAN CORPUSCULAR HGB CONC 32.5 g/dL (32.0-36.0); MEAN CORPUSCULAR VOLUME 77 fl (80-97); MONOCYTES % (AUTO) 8.6 % (3-13); PLATELET COUNT 213 10^3/uL (150-450); RED BLOOD COUNT 4.51 10^6/uL (3.72-5.28); RED CELL DISTRIBUTION WIDTH 14.9 % (11.5-14.0); SEGMENTED NEUTROPHILS % (AUTO) 66.2 % (42-78); TOTAL CELLS COUNTED % (AUTO) 100 %; WHITE BLOOD COUNT 8.8 10^3/uL (4.0-10.5)
[2019-02-23 18:13] LABS: APPEARANCE,URINE SLIGHTLY-CLOUDY; BILIRUBIN,URINE NEGATIVE (NEGATIVE); COLOR,URINE YELLOW; GLUCOSE, URINE NEGATIVE (NEGATIVE); KETONES,URINE 80 mg/dL (NEGATIVE); LEUKOCYTE ESTERASE,URINE MODERATE (NEGATIVE); NITRITE,URINE NEGATIVE (NEGATIVE); PROTEIN,URINE 30 mg/dL (NEGATIVE); URINE SPECIFIC GRAVITY 1.026
== END 2019-02-23 19:00 | disposition left against medical advice (07) ==
LOC: ER 15:52
DX: R10.2 Pelvic and perineal pain (principal); N93.8 Other specified abnormal uterine and vaginal bleeding; R35.0 Frequency of micturition
CPT/HCPCS: 36415; 81001; 84702; 85025; 99284

== ENCOUNTER 2019-03-26 18:28 | Emergency (ER) | payer SELFPAY ==
--- NOTE | 2019-03-26 19:29 | ER Document Report ---
ED Medical Screen (RME) - General Chief Complaint: Vaginal Bleeding Stated Complaint: VAGINAL BLEEDING Time Seen by Provider: 03/26/19 19:20 TRAVEL OUTSIDE OF THE [place] IN LAST 30 DAYS: No - HPI Notes: 03/26/19 19:26 Patient is a 23-year-old female who is approximately 3-4 months (12-16wks?) presents for bleeding that began today. Patient is not exactly sure how far along she is and looking through her history here over the past couple months it is still unspecified. Patient has not had any care because she has not been able to tell anyone how far along she is. No fever or pain at this time. We will hold off on her hCG quantitative at this time she is most likely over 12 weeks, but we will obtain basic labs and imaging. I have treated and performed a rapid initial assessment of this patient. A comprehensive ED assessment and evaluation of the patient, analysis of test results and completion of medical decision making process will be conducted by additional ED providers. PHYSICAL EXAMINATION: GENERAL: Well-appearing, well-nourished and in no acute distress. A&Ox4. Answers questions appropriately. - Related Data Allergies/Adverse Reactions: No Known Allergies Allergy (Verified 02/23/19 17:18) Past Medical History - Social History Chew tobacco use (# tins/day): No Frequency of alcohol use: None Drug Abuse: None Family history: CAD, DM, Hyperlipidemia, Hypertension Renal/ Medical History: Denies: Hx Peritoneal Dialysis GI Medical History: Reports: Hx Pancreatitis - Immunizations Immunizations up to date: Yes Hx Diphtheria, Pertussis, Tetanus Vaccination: Yes Physical Exam - Vital signs Vitals: Temp Pulse Resp BP Pulse Ox 98.3 F 120 H 20 127/72 H 99 03/26/19 18:53 03/26/19 18:53 03/26/19 18:53 03/26/19 18:53 03/26/19 18:53 Course - Vital Signs Vital signs: Temp Pulse Resp BP Pulse Ox 98.3 F 120 H 20 127/72 H 99 03/26/19 18:53 03/26/19 18:53 03/26/19 18:53 03/26/19 18:53 03/26/19 18:53
[2019-03-26 19:53] LABS: ABSOLUTE EOSINOPHILS # (AUTO) 0.1 10^3/uL (0.0-0.6); ABSOLUTE LYMPHOCYTES (AUTO) 1.8 10^3/uL (0.5-4.7); ABSOLUTE MONOCYTES (AUTO) 0.7 10^3/uL (0.1-1.4); ABSOLUTE NEUT (AUTO) 6.2 10^3/uL (1.7-8.2); BASOPHILS % (AUTO) 0.3 % (0-2); EOSINOPHILS % (AUTO) 1.2 % (0-6); HEMATOCRIT 32.8 % (36.0-47.0); HEMOGLOBIN 10.7 g/dL (12.0-15.5); LYMPHOCYTES % (AUTO) 20.5 % (13-45); MEAN CORPUSCULAR HEMOGLOBIN 25.3 pg (27.0-33.4); MEAN CORPUSCULAR HGB CONC 32.5 g/dL (32.0-36.0); MEAN CORPUSCULAR VOLUME 78 fl (80-97); MONOCYTES % (AUTO) 7.6 % (3-13); PLATELET COUNT 198 10^3/uL (150-450); RED BLOOD COUNT 4.22 10^6/uL (3.72-5.28); SEGMENTED NEUTROPHILS % (AUTO) 70.4 % (42-78); TOTAL CELLS COUNTED % (AUTO) 100 %; WHITE BLOOD COUNT 8.8 10^3/uL (4.0-10.5)
[2019-03-26 19:59] LABS: AMORPHOUS SEDIMENT,URINE TRACE /HPF; APPEARANCE,URINE SLIGHTLY-CLOUDY; BILIRUBIN,URINE NEGATIVE (NEGATIVE); CALCIUM OXALATE CRYSTALS,URINE TOO NUMEROUS TO CNT /HPF; COLOR,URINE YELLOW; GLUCOSE, URINE >=500 mg/dL (NEGATIVE); KETONES,URINE TRACE mg/dL (NEGATIVE); PROTEIN,URINE 30 mg/dL (NEGATIVE); URINE SPECIFIC GRAVITY 1.032
[2019-03-26 20:07] LABS: ALBUMIN 3.4 g/dL (3.5-5.0); ALKALINE PHOSPHATASE 44 U/L (38-126); ANION GAP 8 (5-19); ASPARTATE AMINO TRANSFERASE 14 U/L (14-36); BILIRUBIN,DIRECT 0.2 mg/dL (0.0-0.4); BILIRUBIN,TOTAL 0.3 mg/dL (0.2-1.3); BLOOD UREA NITROGEN 9 mg/dL (7-20); CALCIUM 8.8 mg/dL (8.4-10.2); CARBON DIOXIDE 24 mmol/L (22-30); CHLORIDE 104 mmol/L (98-107); GLUCOSE 141 mg/dL (75-110); TOTAL PROTEIN 7.1 g/dL (6.3-8.2)
--- NOTE | 2019-03-26 20:53 | RADIOLOGY REPORT (SQ) ---
EXAM: 14 week ultrasound. CLINICAL INDICATION: Bleeding. COMPARISON: None. TECHNIQUE: First trimester OB ultrasound was performed. Exam was difficult. Patient would not hold still for the exam. FINDINGS: Uterus: The uterus is anteverted and measures 11.4 cm in length. A single gestational sac is seen with a single embryo. The cervix is closed and measures 2.3 cm. Early posterior placenta formation is noted. The placenta may extend across the cervical os. It is too early to tell. The crown-rump length is 7.81 cm which correlates with a gestational age of 13 weeks six days. BPD: 2.65 cm, 14 weeks five days HC: 10.23 cm, 14 weeks six days A.C.: 7.48 cm, 14 weeks zero days FL: 1.40 cm, 14 weeks one day AUA: 14 weeks two days ANNE: 09/22/2019 heart rate: 152 bpm Ovaries and adnexa: Neither ovary was visualized secondary to bowel gas. No free fluid in the pelvis. IMPRESSION: Single living intrauterine with estimated gestational age of 14 weeks two days and estimated delivery date of 09/22/2019. Low lying posterior placenta. Follow-up is recommended.
[2019-03-26 23:38] VITALS: BP 106/75
--- NOTE | 2019-03-26 23:38 | ER Document Report ---
ED GI/ - General Chief Complaint: Vaginal Bleeding Stated Complaint: VAGINAL BLEEDING Time Seen by Provider: 03/26/19 19:20 Primary Care Provider: [facility] [Provider Group] - Follow up as needed Mode of Arrival: Ambulatory Information source: Patient Notes: 23-year-old female presented to ED for complaint of spotting vaginally when she is about 14 weeks . She states this started yesterday. She states it was kind of dark spots yesterday and now she has some blood on the paper when she wipes. She states she has been having trouble getting into an PHOTO MASK PROCESSOR because her Medicaid is stating she is not . She is definitely ultrasound shows a 14-week gestation. I have discussed all of the labs and ultrasound with the patient. I have instructed patient on pelvic rest until she follows up with the health department and then PHOTO MASK PROCESSOR. I have instructed her to please follow-up with Medicaid to get straightened out as she does have a ultrasound showing a live baby. She verbalized understanding and agreement with treatment plan. Patient's blood type is be positive so RhoGam was not ordered. TRAVEL OUTSIDE OF THE [place] IN LAST 30 DAYS: No - HPI Patient complains to provider of: , Vaginal bleeding Onset: Yesterday Timing/Duration: Intermittent Quality of pain: No pain Pain Level: Denies Associated symptoms: Other - Vaginal bleeding in Exacerbated by: Denies Relieved by: Denies Similar symptoms previously: Yes Recently seen / treated by doctor: No - Related Data Allergies/Adverse Reactions: No Known Allergies Allergy (Verified 02/23/19 17:18) Past Medical History - General Information source: Patient - Social History Smoking Status: Current Every Day Smoker Cigarette use (# per day): Yes - Several cigarettes a day Chew tobacco use (# tins/day): No Smoking Education Provided: Yes - 4 minutes Frequency of alcohol use: None Drug Abuse: None Lives with: Family Family History: Reviewed & Not Pertinent Patient has suicidal ideation: No Patient has homicidal ideation: No - Past Medical History Cardiac Medical History: Reports: None Pulmonary Medical History: Reports: None EENT Medical History: Reports: None Neurological Medical History: Reports: None Endocrine Medical History: Reports: Other - Levator blood sugar on her exam today Renal/ Medical History: Reports: None Malignancy Medical History: Reports: None GI Medical History: Reports: Hx Pancreatitis Musculoskeletal Medical History: Reports None Skin Medical History: Reports None Psychiatric Medical History: Reports: None Traumatic Medical History: Reports: None Infectious Medical History: Reports: None Surgical Hx: Negative Past Surgical History: Reports: None - Immunizations Immunizations up to date: Yes Hx Diphtheria, Pertussis, Tetanus Vaccination: Yes Hx Pneumococcal Vaccination: 03/14/00 Review of Systems - Review of Systems Constitutional: No symptoms reported EENT: No symptoms reported Cardiovascular: No symptoms reported Respiratory: No symptoms reported Gastrointestinal: No symptoms reported Genitourinary: No symptoms reported Female Genitourinary: , Vaginal bleeding Musculoskeletal: No symptoms reported Skin: No symptoms reported Hematologic/Lymphatic: No symptoms reported Neurological/Psychological: No symptoms reported -: Yes All other systems reviewed and negative Physical Exam - Vital signs Vitals: Temp Pulse Resp BP Pulse Ox 98.3 F 120 H 20 127/72 H 99 03/26/19 18:53 03/26/19 18:53 03/26/19 18:53 03/26/19 18:53 03/26/19 18:53 Interpretation: Normal Notes: I completed vital signs and recorded them in the graphics - General General appearance: Appears well, Alert - HEENT Head: Normocephalic, Atraumatic Eyes: Normal Pupils: PERRL - Respiratory Respiratory status: No respiratory distress Chest status: Nontender Breath sounds: Normal Chest palpation: Normal - Cardiovascular Rhythm: Regular Heart sounds: Normal auscultation Murmur: No - Abdominal Inspection: Normal Distension: No distension Bowel sounds: Normal Tenderness: Nontender. No: Tender Organomegaly: No organomegaly - Back Back: Normal, Nontender - Extremities General upper extremity: Normal inspection, Nontender, Normal color, Normal ROM, Normal temperature General lower extremity: Normal inspection, Nontender, Normal color, Normal ROM, Normal temperature, Normal weight bearing. No: Abe's sign - Neurological Neuro grossly intact: Yes Cognition: Normal Orientation: AAOx4 [place] Coma Scale Eye Opening: Spontaneous [place] Coma Scale Verbal: Oriented [place] Coma Scale Motor: Obeys Commands [place] Coma Scale Total: 15 Speech: Normal Motor strength normal: LUE, RUE, LLE, RLE Sensory: Normal - Psychological Associated symptoms: Normal affect, Normal mood - Skin Skin Temperature: Warm Skin Moisture: Dry Skin Color: Normal Course - Re-evaluation Re-evalutation: 03/26/19 23:42 Discussed labs and ultrasound with patient. Written report of labs and ultrasound given to patient to follow-up with health department and PHOTO MASK PROCESSOR. Patient was instructed to please follow-up promptly as her blood sugar was elevated today. She states she does have a family history of diabetes but she did not have diabetes with her first . Patient was instructed please to follow-up promptly to get a glucose tolerance test for her . Patient was given instructions on pelvic rest due to the vaginal spotting at 14 weeks. Patient verbalized understanding and agreement with treatment plan and patient was discharged home. - Vital Signs Vital signs: Temp Pulse Resp BP Pulse Ox 98.0 F 98 20 106/75 100 03/26/19 23:36 03/26/19 23:36 03/26/19 23:36 03/26/19 23:36 03/26/19 23:36 - Laboratory Result Diagrams: 03/26/19 19:31 03/26/19 19:31 Laboratory results interpreted by me: 03/26/19 03/26/19 03/26/19 19:31 19:31 19:31 Hgb 10.7 L Hct 32.8 L MCV 78 L MCH 25.3 L RDW 15.0 H Sodium 136.3 L Glucose 141 H Albumin 3.4 L Urine Protein 30 H Urine Glucose (UA) >=500 H Urine Ketones TRACE H Urine Urobilinogen 4.0 H Leukocyte Esterase Rfl MODERATE H Urine Ascorbic Acid 40 H - Diagnostic Test Radiology reviewed: Image reviewed, Reports reviewed Discharge - Discharge Clinical Impression: Vaginal bleeding during Condition: Stable Disposition: HOME, SELF-CARE Instructions: [facility] Additional Instructions: : You are . care is best started as early in as possible. If you're unsure about continuing this , you should discuss this with your physician or with conference planner at [facility]. You should take only medications approved by your physician. Acetaminophen can safely be taken for minor pains. As a rule, medication for chronic conditions such as asthma or seizures can safely be continued. You should discuss with the physician every medicine you take. Any regular exercise program can be continued. Talk to your physician, however, before engaging in competitive or demanding sports. Alcohol, smoking, and "street drugs" are dangerous to your baby. Cocaine is especially dangerous. Don't use any illicit drugs! BLEEDING DURING EARLY : You have been evaluated for passing blood while . While we take this symptom very seriously, most women with your degree of bleeding will go on to have a perfectly normal baby. At this time, there is no indication that a miscarriage will occur. (A miscarriage occurs when the fetus is abnormal. There is no medicine or treatment to prevent it.) A more serious cause of bleeding is tubal (or ectopic) . An ultrasound usually can show whether the is in the uterus or in the tube. Sometimes in early , no fetus is seen. In this case, careful follow-up, including repeat blood tests and repeat ultrasound, is necessary. Do not douche or have sex for at least a week, or until OK'd by the doctor. Don't use tampons. Call the doctor or return for re-examination if there is an increase in bleeding or cramping, extreme weakness, fainting, new abdominal pain, fever, or passage of tissue. I have given you a copy of the labs work and ultrasound. You are 14 weeks . You have a lab intrauterine . Please follow-up with the health department and Medicaid to get followed up by PHOTO MASK PROCESSOR. Please be sure to take your vitamins as instructed. Please complete pelvic rest until you follow-up with the PHOTO MASK PROCESSOR this means no sex no tampons nothing inserted into the vagina. FOLLOW-UP CARE: If you have been referred to a physician for follow-up care, call the physicians office for an appointment as you were instructed or within the next two days. If you experience worsening or a significant change in your symptoms (very heavy bleeding with large clots of blood, passage of tissue, more severe abdominal / pelvic pain or cramping, feeling faint or severe weakness, fever, etc.), notify the physician immediately or return to the Emergency Department at any time for re-evaluation. OBSTETRIC-GYNECOLOGIC (OB-FIELD MARKETING MANAGER) PHYSICIANS IN [place]: [facility] [address] [place] [address] [phone] For active duty and dependents diagnosed with a threatened or miscarriage, you should follow up in the following manner: Standard patients who have a local civilian provider should follow up with that provider. Patients of the Family Practice Clinic should call your Team Nurse at 8:00 am the following morning for further instructions. If you are neither a Standard patient nor a patient of the Family Practice Clinic, you should follow up at the [facility] ([facility]). Patients already enrolled in the [facility], Prime patients not assigned to the Family Practice Clinic, and Active Duty patients not assigned to Family Practice Clinic should report to the [facility] at 8:00 am the next morning that the [facility] is open and then you will be seen in the OB Clinic at 11:00 am. Forms: Return to Work Referrals: [facility] [Provider Group] - Follow up as needed
== END 2019-03-27 00:04 | disposition home or self-care (01) ==
LOC: ER 18:28
DX: O46.92 Antepartum hemorrhage, unspecified, second trimester (principal); Z3A.14 14 weeks gestation of pregnancy; O99.332 Smoking (tobacco) complicating pregnancy, second trimester
CPT/HCPCS: 36415; 76805; 80053; 81001; 85025; 99284; 99406

== ENCOUNTER 2019-05-12 03:02 | Outpatient (CLI) | payer MEDICAID ==
[2019-05-12 03:49] LABS: APPEARANCE,URINE CLOUDY; BILIRUBIN,URINE NEGATIVE (NEGATIVE); COLOR,URINE YELLOW; GLUCOSE, URINE NEGATIVE (NEGATIVE); KETONES,URINE TRACE mg/dL (NEGATIVE); LEUKOCYTE ESTERASE,URINE MODERATE (NEGATIVE); NITRITE,URINE NEGATIVE (NEGATIVE); PROTEIN,URINE 30 mg/dL (NEGATIVE); URINE SPECIFIC GRAVITY 1.028
[2019-05-12 04:03] LABS: URINE AMPHETAMINES SCREEN NEGATIVE; URINE BARBITURATES SCREEN NEGATIVE; URINE BENZODIAZEPINES SCREEN NEGATIVE; URINE METHADONE SCREEN NEGATIVE; URINE PHENCYCLIDINE SCREEN NEGATIVE
[2019-05-12 04:12] LABS: URINE COCAINE SCREEN UNCONFIRMED POSITIVE; URINE MARIJUANA (THC) SCREEN UNCONFIRMED POSITIVE
[2019-05-12 05:17] LABS: CHLAM PCR NOT DETECTED (NOT DETECT)
--- NOTE | 2019-05-12 05:52 | RADIOLOGY REPORT (SQ) ---
Ultrasound OB limited on 05/12/2019 at 4:27 AM Clinical dictation: Lower abdominal pressure, evaluate fetus COMPARISON: 03/26/2019 FINDINGS: Limited sonographic imaging is performed throughout the pelvis by transabdominal approach, both transverse and sagittal images are obtained. Single living intrauterine fetus is noted in variable presentation during this examination. Positive cardiac activity is noted with heart rate of 149 bpm. Placenta is anterior in location with no evidence of placenta previa or abruption. Cervical length measures approximately 3.1 cm and the cervix is closed. Normal amount of amniotic fluid is noted with amniotic fluid index of 13.8 cm. No gross abnormality is noted. measurements for dates were not performed. IMPRESSION: Single living intrauterine fetus with no acute abnormality noted.
== END 2019-05-12 06:33 | disposition home or self-care (01) ==
LOC: LC 03:02
PROVIDERS: ATTEND Obstetrics & Gynecology
PROC: 4A1HXCZ Monitoring of Products of Conception, Cardiac Rate, External Approach (ICD-10-PCS; principal; 2019-05-12)
DX: O26.892 Other specified pregnancy related conditions, second trimester (principal); R10.30 Lower abdominal pain, unspecified; O09.32 Supervision of pregnancy with insufficient antenatal care, second trimester; Z3A.21 21 weeks gestation of pregnancy
CPT/HCPCS: 36415; 76815; 80307; 80361; 81005; 87491; 87591

== ENCOUNTER 2019-08-14 21:31 | Outpatient (CLI) | payer MEDICAID ==
[2019-08-14 22:01] LABS: APPEARANCE,URINE SLIGHTLY-CLOUDY; BILIRUBIN,URINE NEGATIVE (NEGATIVE); COLOR,URINE YELLOW; GLUCOSE, URINE NEGATIVE (NEGATIVE); KETONES,URINE NEGATIVE (NEGATIVE); LEUKOCYTE ESTERASE,URINE LARGE (NEGATIVE); NITRITE,URINE NEGATIVE (NEGATIVE); PROTEIN,URINE NEGATIVE (NEGATIVE); UROBILINOGEN,URINE NEGATIVE mg/dL (<2.0)
[2019-08-14 22:15] LABS: URINE AMPHETAMINES SCREEN NEGATIVE; URINE BARBITURATES SCREEN NEGATIVE; URINE BENZODIAZEPINES SCREEN NEGATIVE; URINE METHADONE SCREEN NEGATIVE; URINE PHENCYCLIDINE SCREEN NEGATIVE
[2019-08-14 22:17] LABS: URINE COCAINE SCREEN UNCONFIRMED POSITIVE; URINE MARIJUANA (THC) SCREEN UNCONFIRMED POSITIVE
[2019-08-14] MEDS ORDERED: CEFTRIAXONE INJ 1000 MG VIAL ONE (22:36)
[2019-08-14] MEDS ORDERED: LIDOCAINE 1% INJ-PF (10 MG/ML) 30 ML SDV ONE (22:36)
[2019-08-14] MEDS ORDERED: LIDOCAINE 1% INJ-PF (10 MG/ML) 30 ML SDV INJ ONE (23:00)
[2019-08-14] MEDS ORDERED: CEFTRIAXONE INJ 1000 MG VIAL IM ONE (23:00)
--- NOTE | 2019-08-14 23:03 | Non Stress Test Report ---
Non Stress Test Datetime Report Generated by CPN: 08/14/2019 23:03 DEMOGRAPHIC EGA NST: 34.3 INDICATION Indication for Study (NST) Other: lc MONITORING Monitor Explained: Monitor Explained; Test Explained; Patient Verbalized Understanding Time on Monitor: 08/14/2019 21:43 Time off Monitor: 08/14/2019 22:03 NST Duration: 20 NST INTERVENTIONS NST Interventions: PO Hydration; Reposition Patient Physician Notified NST: Dr David BABY A: [id number] BABY A Movement : Present Contraction Frequency : 0 FHR Baseline : 125 Accelerations : 15X15 Decelerations : None Variability : Moderate 6-25bpm NST Review: Meets Criteria for Reactive NST NST Review and Verified By : Karma Camp RN NST Results: Reactive NST REPORT Report Trigger: Send Report
== END 2019-08-14 22:55 | disposition home or self-care (01) ==
LOC: LC 21:31
PROVIDERS: ATTEND Obstetrics & Gynecology
DX: Z34.93 Encounter for supervision of normal pregnancy, unspecified, third trimester (principal); Z3A.34 34 weeks gestation of pregnancy
CPT/HCPCS: 59025; 81001; 80307; 80353; G0480 ×3; J3490; J0696; 36415; 80349

== ENCOUNTER 2019-08-30 23:18 | Inpatient (IN) | payer MEDICAID ==
[2019-08-30] MEDS ORDERED: PENICILLIN G-K 5 MILLION UNIT VIAL ONE (23:33)
[2019-08-30] MEDS ORDERED: PENICILLIN G POTASSIUM 5,000,000 UNIT in DEXTROSE 5%-WATER 100 ML IV ONE (23:35)
[2019-08-30] MEDS ORDERED: RINGERS SOLUTION,LACTATED 1,000 ML IV PRN (23:35)
[2019-08-30] MEDS ORDERED: OXYTOCIN/0.9 % SODIUM CHLORIDE 30 UNIT/500 ML RTUINJ ONE (23:49)
[2019-08-30] MEDS ORDERED: MISOPROSTOL 0.2 MG TABLET ONE (23:49)
[2019-08-30] MEDS ORDERED: OXYTOCIN 10 UNIT/ML VIAL ONE (23:49)
[2019-08-30] MEDS ORDERED: LIDOCAINE 1% INJ-PF (10 MG/ML) 30 ML SDV ONE (23:49)
[2019-08-31 00:05] LABS: T.VAGINALIS (WET MOUNT) TRICHOMONAS SEEN; WBCS (WET MOUNT) 3+ WBCS SEEN; YEAST (WET MOUNT) NO YEAST SEEN
[2019-08-31 00:06] LABS: BACTERIA (WET MOUNT) 4+ BACTERIA SEEN; EPITHELIALS (WET MOUNT) 3+ EPITHELIALS SEEN; RBCS (WET MOUNT) 1+ RBCS SEEN
[2019-08-31 00:42] LABS: APPEARANCE,URINE CLEAR; BILIRUBIN,URINE NEGATIVE (NEGATIVE); COLOR,URINE YELLOW; GLUCOSE, URINE NEGATIVE (NEGATIVE); KETONES,URINE NEGATIVE (NEGATIVE); LEUKOCYTE ESTERASE,URINE MODERATE (NEGATIVE); NITRITE,URINE NEGATIVE (NEGATIVE); PROTEIN,URINE NEGATIVE (NEGATIVE); UROBILINOGEN,URINE NEGATIVE mg/dL (<2.0)
[2019-08-31 00:58] LABS: URINE AMPHETAMINES SCREEN NEGATIVE; URINE BARBITURATES SCREEN NEGATIVE; URINE BENZODIAZEPINES SCREEN NEGATIVE; URINE METHADONE SCREEN NEGATIVE; URINE PHENCYCLIDINE SCREEN NEGATIVE
[2019-08-31 01:04] LABS: URINE COCAINE SCREEN UNCONFIRMED POSITIVE
[2019-08-31 01:05] LABS: URINE MARIJUANA (THC) SCREEN UNCONFIRMED POSITIVE
[2019-08-31 01:37] LABS: CHLAM PCR NOT DETECTED (NOT DETECT)
[2019-08-31 01:47] LABS: ABSOLUTE BASOPHILS # (AUTO) 0.1 10^3/uL (0.0-0.2); ABSOLUTE MONOCYTES (AUTO) 1.3 10^3/uL (0.1-1.4); ABSOLUTE NEUT (AUTO) 9.2 10^3/uL (1.7-8.2); BASOPHILS % (AUTO) 0.5 % (0-2); EOSINOPHILS % (AUTO) 0.4 % (0-6); HEMATOCRIT 28.2 % (36.0-47.0); LYMPHOCYTES % (AUTO) 15.5 % (13-45); MEAN CORPUSCULAR HEMOGLOBIN 24.6 pg (27.0-33.4); MEAN CORPUSCULAR HGB CONC 31.9 g/dL (32.0-36.0); MEAN CORPUSCULAR VOLUME 77 fl (80-97); MONOCYTES % (AUTO) 10.4 % (3-13); PLATELET COUNT 188 10^3/uL (150-450); RED BLOOD COUNT 3.67 10^6/uL (3.72-5.28); RED CELL DISTRIBUTION WIDTH 14.5 % (11.5-14.0); SEGMENTED NEUTROPHILS % (AUTO) 73.2 % (42-78); TOTAL CELLS COUNTED % (AUTO) 100 %; WHITE BLOOD COUNT 12.6 10^3/uL (4.0-10.5)
--- NOTE | 2019-08-31 02:20 | Admission Physical ---
Datetime Report Generated by CPN: 08/31/2019 02:20 CURRENT ADMISSION Chief Complaint: Uterine Contractions Indication for Induction: Not Applicable Admit Impression : Term, Intrauterine Admit Plan: Admit to Unit; Initiate Labor Protocol ALLERGIES Medication Allergies: No Medication Allergies: No Known Allergies (08/31/2019) Latex: No Latex Allergies Food Allergies: NKA Environmental Allergies: NKA OBSTETRICAL HISTORY EDC: 09/24/2019 00:00 : 2 Para: 1 Term: 1 : 0 SAB: 0 IAB: 0 Ectopic: 0 Livin Cesareans: 0 VBACs: 0 Multiple Births: 0 Gestational Diabetes: No Rh Sensitization: No Incompetent Cervix: No ALBINO: No Infertility: No ART Treatment: No Uterine Anomaly: No IUGR: No Hx Previous C/S: No Macrosomia: No Hx Loss/Stillborn: No PIH: No Hx : No Placenta Previa/Abruption: No Depression/PP Depression: No PTL/PROM: No Post Hemorrhage: No Current Procedures: Ultrasound Obstetrical History Comments: G1: 2017; , girl @ 38 weeks, 5# 5 oz (has sickle cell disease) G2: current SEE RECORDS Alcohol: No Marijuana : Yes Previous Treatment: None Marijuana Comments: Pt states she has smoked "weed in the last 30 days". Cocaine: Yes Cocaine Comments: Pt denies any use, but has been positive the last several visits in the ED. Other Illicit Drugs: Yes Illicit Drug Comments: Pt positive for opiates 05/12/2019. Pt denies any opiate use, but states she does have a script for tylenol with codeine. Cigarettes: Former Smoker. [id number] MEDICAL HISTORY Diabetes: Yes Diabetes Type: Gestational Diabetes Blood Transfusion: No Pulmonary Disease (Asthma, TB): No Breast Disease: No Hypertension: No Paraprofessional Interpreter Surgery: No Heart Disease: No Hosp/Surgery: Yes Autoimmune Disorder: No Anesthetic Complications: No Kidney Disease: No Abnormal Pap Smear: No Neuro/Epilepsy: No Psychiatric Disorders: No Other Medical Diseases: No Hepatitis/Liver Disease: No Significant Family History: No Varicosities/Phlebitis: No Trauma/Violence : No Thyroid Dysfunction: No INFECTIOUS HISTORY Gonorrhea: Yes Genital Herpes: Yes Chlamydia: Yes Tuberculosis: No Syphilis: No Hepatitis: No HIV/AIDS Exposure: No Rash or Viral Illness: No HPV: No Infectious History Comments: 2017 gonorrhea and chlamydia 2017 says pt has Herpes and suppose to take valtrex. Pt states she doesn't have herpes and wants the information taken off prentals records. PHYSICAL EXAM General: Normal HEENT: Normal Neurologic: Normal Thyroid: Normal Heart: Normal Lungs: Normal Breast: Deferred Back: Normal Abdomen: Normal Genitourinary Exam: Normal Extremities: Normal DTRs: Normal Pelvic Type: Adequate FETUS A EGA: 36.4 PLANS FOR LABOR AND DELIVERY Labor and Delivery: None Pain Management: Epidural Feeding Preference: Formula Benefit of Breast Feed Discussed: Yes INFORMED CONSENT Signature: with User ID: [email or web address]
[2019-08-31] MEDS ORDERED: PENICILLIN G-K 5 MILLION UNIT VIAL ONE (03:37)
[2019-08-31] MEDS ORDERED: BENZOCAINE/MENTHOL AEROSOL SPRAY 56 ML TOP PRN (03:54)
[2019-08-31] MEDS ORDERED: PROMETHAZINE HCL INJ 25 MG/1 ML VIAL IV PRN (03:54)
[2019-08-31] MEDS ORDERED: ZOLPIDEM TARTRATE 5 MG TABLET PO PRN (03:54)
[2019-08-31] MEDS ORDERED: PSEUDOEPHEDRINE HCL 30 MG TABLET PO PRN (03:54)
[2019-08-31] MEDS ORDERED: PROMETHAZINE HCL 25 MG SUPP.RECT PR PRN (03:54)
[2019-08-31] MEDS ORDERED: DIBUCAINE 1% OINTMENT 28 GM TP PRN (03:54)
[2019-08-31] MEDS ORDERED: MEASLES,MUMPS&RUBELLA VACC/PF 0.5 ML VIAL SUBCUT PRN (03:54)
[2019-08-31] MEDS ORDERED: ACETAMINOPHEN 650 MG SUPP.RECT PR PRN (03:54)
[2019-08-31] MEDS ORDERED: DIPHENHYDRAMINE HCL 25 MG CAPSULE PO PRN (03:54)
[2019-08-31] MEDS ORDERED: PROMETHAZINE HCL 25 MG TABLET PO PRN (03:54)
[2019-08-31] MEDS ORDERED: NA PHOS,M-B/NA PHOS,DI-BA (ADULT) 133 ML ENEMA PR PRN (03:54)
[2019-08-31] MEDS ORDERED: ACETAMINOPHEN WITH CODEINE #3 TABLET PO PRN ×2 (03:54)
[2019-08-31] MEDS ORDERED: DIPH/PERTUSS(ACELL)/TETANUS VAC/PF 0.5 ML SYR (>=10YO) IM PRN (03:54)
[2019-08-31] MEDS ORDERED: OXYTOCIN/0.9 % SODIUM CHLORIDE 30 UNIT/500 ML RTUINJ IV PRN (03:54)
[2019-08-31] MEDS ORDERED: GLYCERIN/WITCH HAZEL LEAF 1 EACH MED..WIPE TP PRN (03:54)
[2019-08-31] MEDS ORDERED: MAGNESIUM HYDROXIDE SUSP 30 ML UDCUP PO PRN (03:54)
[2019-08-31] MEDS ORDERED: PENICILLIN G POTASSIUM 2,500,000 UNIT in DEXTROSE 5%-WATER 50 ML IV SCH ×2 (04:00→05:24)
[2019-08-31] MEDS ORDERED: METRONIDAZOLE 500 MG TABLET ONE (04:10)
[2019-08-31] MEDS ORDERED: IBUPROFEN 800 MG TABLET ONE (04:11)
[2019-08-31] MEDS ORDERED: METRONIDAZOLE 500 MG TABLET PO ONE (04:15)
[2019-08-31] MEDS: IBUPROFEN 800 MG TABLET PO SCH ×3 (06:52→21:16)
[2019-08-31] MEDS: FAMOTIDINE 20 MG TABLET PO SCH ×2 (09:46→21:16)
[2019-08-31] MEDS: PRENATAL VITAMIN W DHA CAPSULE PO SCH (09:46)
[2019-08-31] MEDS: FERROUS SULFATE 325 MG TABLET PO SCH ×3 (09:46→18:41)
[2019-08-31] MEDS: DOCUSATE SODIUM 100 MG CAPSULE PO SCH ×3 (09:46→18:41)
[2019-08-31] MEDS: SENNOSIDES/DOCUSATE 8.6-50 MG 1 EACH TABLET PO SCH (09:46)
--- NOTE | 2019-08-31 18:25 | Delivery Summary ---
Del Sum A-C Datetime Report Generated by CPN: 08/31/2019 18:25 DELIVERY PERSONNEL DELIVERY PERSONNEL: [id number] Delivery Doctor:: John Salcedo MD Labor and Delivery Nurse:: Laisha Richard RNfruit packer Nurse:: Parisa Bender RN Nursery Nurse:: Farrah Hendrickson RN Nursery Nurse:: Yana Lopez RN Valve Pipe Irrigator/FIELD RADIO OPERATOR: Cece Branch, ST MATERNAL INFORMATION Delivery Anesthesia: None Medications After Delivery: Pitocin 30 Units in 500ml NS/D5W; Cytotec 1000mcg Per Rectum/Vagina Delivery QBL: 300 Maternal Complications: Precipitous Labor (<3hrs) LABOR SUMMARY EDC: 09/24/2019 00:00 No. Babies in Womb: 1 Attempted: No Labor Anesthesia: None LABOR INFORMATION Reason for Induction: Not Applicable Onset of Labor: 08/31/2019 01:00 Complete Dilatation: 08/31/2019 03:37 Oxytocin: N/A Group B Beta Strep: 1 GROUP B BETA HEMOLYTIC STREPTOCOCCUS RECOVERED Penicillin and ampicillin are drugs of choice for treatment of beta-hemolytic streptococcal infections. Susceptibility testing of penicillins and other beta-lactam agents approved by the FDA for treatment of beta-hemolytic streptococcal infections need not be performed routinely because nonsusceptible isolates are extremely rare in any beta-hemolytic streptococcus and have not been reported for Streptococcus pyogenes (group A). (CLSI) Antibiotics # of Doses: 1 Antibiotics Time of Last Dose: 5516 Name of Antibiotic Given: PCN Steroids Given: None Reason Steroids Not Administered: Not Applicable MEMBRANES Membranes Rupture Method: Spontaneous Rupture of Membranes: 08/31/2019 01:00 Length of Rupture (hr): 2.78 Amniotic Fluid Color: Light Meconium Amniotic Fluid Amount: Moderate Amniotic Fluid Odor: Normal STAGES OF LABOR Stage 1 hr: 2 Stage 1 min: 37 Stage 2 hr: 0 Stage 2 min: 10 Stage 3 hr: 0 Stage 3 min: 2 Total Time in Labor hr: 2 Total Time in Labor min: 49 VAGINAL DELIVERY Episiotomy: None Laceration #1: None Laceration Extension #1: N/A Laceration Repair: Not Applicable Sponge Count Correct: N/A CSECTION DELIVERY Primary Indication: N/A Secondary Indication: N/A CSection Incidence: N/A Labor: N/A Elective: N/A CSection Incision: N/A BABY A INFORMATION Delivery Date/Time: 08/31/2019 03:47 Method of Delivery: Vaginal Nurse Controlled Delivery: No Born in Route : No : N/A Forceps: N/A Vacuum Extraction: N/A Shoulder Dystocia : No PRESENTATION/POSITION BABY A Presentation: Cephalic Cephalic Presentation: Vertex Vertex Position: OP Breech Presentation: N/A PLACENTA INFORMATION BABY A Placenta Delivery Time : 08/31/2019 03:49 Placenta Method of Delivery: Spontaneous Placenta Status: Delivered SCORES BABY A Heart Rate 1 min: >100 bpm Resp Effort 1 min: Good Cry Reflex Irritability 1 min: Cough or Sneeze or Pulls Away Muscle Tone 1 min: Active Motion Color 1 min: Body [place], Extremities Blue Resuscitation Effort 1 min: Tactile Stimulation SCORE 1 MIN: 9 Heart Rate 5 min: >100 bpm Resp Effort 5 min: Good Cry Reflex Irritability 5 min: Cough or Sneeze or Pulls Away Muscle Tone 5 min: Active Motion Color 5 min: Body [place], Extremities Blue Resuscitation Effort 5 min: Tactile Stimulation SCORE 5 MIN: 9 INFANT INFORMATION BABY A Gestational Age at Delivery: 36.4 Gestational Status: Late - 34- 36.6 Weeks Outcome : Liveborn Condition : Stable Infant Sex: Male IDENTIFICATION BABY A Infant Verification Date/Time: 08/31/2019 03:57 ID Band Number: [id number] Mother's Name Verified: Yes Infant RN Verifying Infant: K Chase, RN Additional Verifying Personnel: M Campbell, RN WEIGHT/LENGTH BABY A Birthweight (gm): 2268 Weight (lb): 5 Infant Weight (oz): 0 Length (in): 18.50 Length (cm): 46.99 CORD INFORMATION BABY A No. Cord Vessels: 3 Nuchal Cord : N/A Cord Blood Taken: Yes-For Storage (Mom's Blood type +) Infant Suction: None ASSESSMENT BABY A Complications: None Physical Findings at Delivery: Within Normal Limits Respirations: Tachypnea Skin to Skin: Yes Infant Care By: KOREY Bland Transferred To: Remains with Mother SIGNATURES Signature: with User ID: [email or web address]
[2019-09-01] MEDS: IBUPROFEN 800 MG TABLET PO SCH ×3 (06:26→21:29)
[2019-09-01 07:23] LABS: HEMATOCRIT 24.5 % (36.0-47.0); MEAN CORPUSCULAR HEMOGLOBIN 24.6 pg (27.0-33.4); MEAN CORPUSCULAR VOLUME 77 fl (80-97); PLATELET COUNT 162 10^3/uL (150-450); RED CELL DISTRIBUTION WIDTH 14.9 % (11.5-14.0); WHITE BLOOD COUNT 11.8 10^3/uL (4.0-10.5)
[2019-09-01 07:27] LABS: HEMOGLOBIN 7.9 g/dL (12.0-15.5)
--- NOTE | 2019-09-01 10:06 | PDOC PROGRESS REPORT ---
Subjective-OB Progress Note for:: 09/01/19 Subjective: reports bleeding slowing, pain controlled with current meds. denies needs Physical Exam (OB) Vital Signs: Temp Pulse Resp BP Pulse Ox 97.5 F 84 18 130/84 H 100 09/01/19 09:51 09/01/19 09:51 09/01/19 09:51 09/01/19 09:51 09/01/19 09:51 Intake & Output 08/31/19 09/01/19 09/02/19 06:59 06:59 06:59 Weight 61.7 kg - Abdomen Description: Soft, Round Hernia Present: No Fundal Description: Firm, Midline Fundal Height: u/u - u/2 - Abdominal Distension: No distension Tenderness: Nontender - Extremities Lower extremities: Abe's sign - neg Calf: Normal, Nontender Objective-Diagnostic Laboratory: 09/01/19 07:07 09/01/19 07:07 WBC 11.8 H RBC 3.20 L Hgb 7.9 L Hct 24.5 L MCV 77 L MCH 24.6 L MCHC 32.0 RDW 14.9 H Plt Count 162 08/30/19 23:45 Vaginal/Anorectal Group B Streptococcus Culture - Final GROUP B BETA HEMOLYTIC STREPTOCOCCUS RECOVERED Assessment and Plan(PN) - Assessment and Plan (1) Anemia Is this a current diagnosis for this admission?: Yes (2) Cocaine abuse affecting in third trimester Is this a current diagnosis for this admission?: Yes (3) Vaginal delivery Is this a current diagnosis for this admission?: Yes - Time Spent with Patient Time with patient: Less than 15 minutes - Disposition Anticipated Discharge: Home Within: within 24 hours
[2019-09-01] MEDS: FERROUS SULFATE 325 MG TABLET PO SCH ×2 (12:05→18:37)
[2019-09-01] MEDS: PRENATAL VITAMIN W DHA CAPSULE PO SCH (12:05)
[2019-09-01] MEDS: FAMOTIDINE 20 MG TABLET PO SCH ×2 (12:05→21:29)
[2019-09-01] MEDS: DOCUSATE SODIUM 100 MG CAPSULE PO SCH ×2 (12:05→18:37)
[2019-09-01] MEDS: SENNOSIDES/DOCUSATE 8.6-50 MG 1 EACH TABLET PO SCH (12:05)
[2019-09-02] MEDS: IBUPROFEN 800 MG TABLET PO SCH (05:35)
[2019-09-02 08:39] VITALS: BP 120/89
--- NOTE | 2019-09-02 10:22 | PDOC DISCHARGE SUMMARY ---
Impression - Admit/DC Date/PCP Admission Date/Primary Care Provider: 08/31/19 01:26 Discharge Date: 09/02/19 - Discharge Diagnosis (1) Anemia Is this a current diagnosis for this admission?: Yes (2) Cocaine abuse affecting in third trimester Is this a current diagnosis for this admission?: Yes (3) Vaginal delivery Is this a current diagnosis for this admission?: Yes - Additional Information Discharge Diet: Regular Discharge Activity: Balance Activity w/Rest, Pelvic Rest Prescriptions: Ibuprofen [Motrin 800 mg Tablet] 800 mg PO Q8HP PRN #60 tablet PRN Reason: Vit/Dha [ Multi + Dha Capsule] 1 cap PO DAILY #90 capsule Home Medications: Ibuprofen [Motrin 800 mg Tablet] 800 mg PO Q8HP PRN #60 tablet 09/02/19 Vit/Dha [ Multi + Dha Capsule] 1 cap PO DAILY #90 capsule 09/02/19 Results Laboratory Results: WBC 11.8 10^3/uL (4.0-10.5) H 09/01/19 07:07 RBC 3.20 10^6/uL (3.72-5.28) L 09/01/19 07:07 Hgb 7.9 g/dL (12.0-15.5) L 09/01/19 07:07 Hct 24.5 % (36.0-47.0) L 09/01/19 07:07 MCV 77 fl (80-97) L 09/01/19 07:07 MCH 24.6 pg (27.0-33.4) L 09/01/19 07:07 MCHC 32.0 g/dL (32.0-36.0) 09/01/19 07:07 RDW 14.9 % (11.5-14.0) H 09/01/19 07:07 Plt Count 162 10^3/uL (150-450) 09/01/19 07:07 Lymph % (Auto) 15.5 % (13-45) 08/31/19 01:38 [place] % (Auto) 10.4 % (3-13) 08/31/19 01:38 Eos % (Auto) 0.4 % (0-6) 08/31/19 01:38 Baso % (Auto) 0.5 % (0-2) 08/31/19 01:38 Absolute Neuts (auto) 9.2 10^3/uL (1.7-8.2) H 08/31/19 01:38 Absolute Lymphs (auto) 2.0 10^3/uL (0.5-4.7) 08/31/19 01:38 Absolute Monos (auto) 1.3 10^3/uL (0.1-1.4) 08/31/19 01:38 Absolute Eos (auto) 0.0 10^3/uL (0.0-0.6) 08/31/19 01:38 Absolute Basos (auto) 0.1 10^3/uL (0.0-0.2) 08/31/19 01:38 Seg Neutrophils % 73.2 % (42-78) 08/31/19 01:38 Urine Color YELLOW 08/31/19 00:33 Urine Appearance CLEAR 08/31/19 00:33 Urine pH 6.0 (5.0-9.0) 08/31/19 00:33 Ur Specific [place] 1.020 08/31/19 00:33 Urine Protein NEGATIVE mg/dL (NEGATIVE) 08/31/19 00:33 Urine Glucose (UA) NEGATIVE mg/dL (NEGATIVE) 08/31/19 00:33 Urine Ketones NEGATIVE mg/dL (NEGATIVE) 08/31/19 00:33 Urine Blood NEGATIVE (NEGATIVE) 08/31/19 00:33 Urine Nitrite NEGATIVE (NEGATIVE) 08/31/19 00:33 Urine Bilirubin NEGATIVE (NEGATIVE) 08/31/19 00:33 Urine Urobilinogen NEGATIVE mg/dL (<2.0) 08/31/19 00:33 Ur Leukocyte Esterase MODERATE (NEGATIVE) H 08/31/19 00:33 Urine Ascorbic Acid NEGATIVE (NEGATIVE) 08/31/19 00:33 Membranes Rupture POSITIVE (NEGATIVE) H 08/31/19 01:00 Epi Cells (Wet Prep) 3+ EPITHELIALS SEEN 08/30/19 23:45 Bacteria (Wet Prep) 4+ BACTERIA SEEN 08/30/19 23:45 Trichomonas (Wet Prep) TRICHOMONAS SEEN 08/30/19 23:45 Vaginal WBC 3+ WBCS SEEN 08/30/19 23:45 Vaginal RBC 1+ RBCS SEEN 08/30/19 23:45 Vaginal Yeast NO YEAST SEEN 08/30/19 23:45 Urine Opiates Screen NEGATIVE 08/31/19 00:33 Urine Methadone Screen NEGATIVE 08/31/19 00:33 Ur Barbiturates Screen NEGATIVE 08/31/19 00:33 Ur Phencyclidine Scrn NEGATIVE 08/31/19 00:33 Ur Amphetamines Screen NEGATIVE 08/31/19 00:33 U Benzodiazepines Scrn NEGATIVE 08/31/19 00:33 Urine Cocaine Screen UNCONFIRMED POSITIVE 08/31/19 00:33 U Marijuana (THC) Screen UNCONFIRMED POSITIVE 08/31/19 00:33 RPR NONREACTIVE (NONREACTIVE) 08/31/19 01:38 Chlamydia DNA (PCR) NOT DETECTED (NOT DETECT) 08/30/19 23:45 N.gonorrhoeae DNA (PCR) NOT DETECTED (NOT DETECT) 08/30/19 23:45 Blood Type B POSITIVE 08/31/19 01:38 Antibody Screen NEGATIVE 08/31/19 01:38 Plan Plan of Treatment: follow up in 4 weeks at [facility] for post check
[2019-09-02] MEDS: FERROUS SULFATE 325 MG TABLET PO SCH (11:41)
[2019-09-02] MEDS: PRENATAL VITAMIN W DHA CAPSULE PO SCH (11:41)
[2019-09-02] MEDS: FAMOTIDINE 20 MG TABLET PO SCH (11:41)
[2019-09-02] MEDS: SENNOSIDES/DOCUSATE 8.6-50 MG 1 EACH TABLET PO SCH (11:42)
[2019-09-02] MEDS: DOCUSATE SODIUM 100 MG CAPSULE PO SCH (11:42)
== END 2019-09-02 12:08 | disposition home or self-care (01) | DRG 807 ==
LOC: LC 23:18 → LR 08-31 01:26 → 2S 08-31 05:48
PROVIDERS: ADMIT Obstetrics & Gynecology Gynecology; ATTEND Obstetrics & Gynecology Gynecology
PROC: 10E0XZZ Delivery of Products of Conception, External Approach (ICD-10-PCS; principal; 2019-08-31)
PROC: 3E0234Z Introduction of Serum, Toxoid and Vaccine into Muscle, Percutaneous Approach (ICD-10-PCS; 2019-09-02)
DX: O99.824 Streptococcus B carrier state complicating childbirth (principal); Z37.0 Single live birth; O99.02 Anemia complicating childbirth; O99.324 Drug use complicating childbirth; D64.9 Anemia, unspecified; O62.3 Precipitate labor; F14.10 Cocaine abuse, uncomplicated; Z87.891 Personal history of nicotine dependence; Z3A.36 36 weeks gestation of pregnancy; Z23 Encounter for immunization
CPT/HCPCS: 36415; 80307; 80349; 80353; 81005; 84112; 85025; 85027; 86592; 86850; 86900; 86901; 87077; 87081; 87210; 87491; 87591; 90715; G0480; J2540; J2590; J3490; J7060

== ENCOUNTER 2020-02-17 06:25 | Emergency (ER) | payer MEDICAID, OTHER ==
[2020-02-17 06:31] VITALS: BP 123/84
[2020-02-17] MEDS ORDERED: ACETAMINOPHEN 325 MG TABLET PO ONE (06:35)
[2020-02-17] MEDS ORDERED: CEFTRIAXONE INJ 1000 MG VIAL IM ONE (07:20)
[2020-02-17] MEDS ORDERED: KETOROLAC TROMETHAMINE 60 MG/2 ML SDV IM ONE (07:22)
--- NOTE | 2020-02-17 07:25 | ER Document Report ---
Entered by MAXIMUS AVILES SCRIBE 02/17/20704 Acting as scribe for:KVNG MANDUJANO MD ED Oral Problem - General Chief Complaint: Toothache Stated Complaint: FACIAL SWELLING TRAVEL OUTSIDE OF THE [place] IN LAST 30 DAYS: No - Related Data Allergies/Adverse Reactions: No Known Allergies Allergy (Verified 08/31/19 00:21) Past Medical History - Social History Smoking Status: Current Every Day Smoker Family History: Reviewed & Not Pertinent Renal/ Medical History: Denies: Hx Peritoneal Dialysis GI Medical History: Reports: Hx Pancreatitis Psychiatric Medical History: Denies: Hx Depression - Immunizations Immunizations up to date: Yes Hx Diphtheria, Pertussis, Tetanus Vaccination: Yes Hx Pneumococcal Vaccination: 03/14/00 Physical Exam - Vital signs Vitals: Temp Pulse Resp BP Pulse Ox 98.3 F 123 H 18 123/84 100 02/17/20 06:30 02/17/20 06:30 02/17/20 06:30 02/17/20 06:30 02/17/20 06:30 Course - Re-evaluation Re-evalutation: 02/17/20 07:22 Patient resting comfortably. - Vital Signs Vital signs: Temp Pulse Resp BP Pulse Ox 98.3 F 123 H 18 123/84 100 02/17/20 06:30 02/17/20 06:30 02/17/20 06:30 02/17/20 06:30 02/17/20 06:30 02/17/20 07:22 Vital signs stable except for tachycardic pulse rate 123 Discharge - Discharge Clinical Impression: Dental abscess Condition: Stable Disposition: HOME, SELF-CARE Unit Admitted: Post Instructions: Toothache ([facility]), Abscess ([facility]) Prescriptions: Amoxicillin/Potassium Clav [Augmentin 875-125 Tablet] 1 tab PO BID #20 tab Ibuprofen [Ibu] 600 mg PO TID PRN #21 tablet PRN Reason: Pain Scale Of 3 I personally performed the services described in the documentation, reviewed and edited the documentation which was dictated to the scribe in my presence, and it accurately records my words and actions.
== END 2020-02-17 08:30 | disposition home or self-care (01) ==
LOC: ER 06:25
DX: K04.7 Periapical abscess without sinus (principal); K08.89 Other specified disorders of teeth and supporting structures; R22.0 Localized swelling, mass and lump, head; F17.200 Nicotine dependence, unspecified, uncomplicated
CPT/HCPCS: 99284; 96372; J3490; J1885; J0696